=== PATIENT | male | born 1940 | race Caucasian/White ===

== ENCOUNTER 2025-08-07 08:30 | Inpatient (IN) | payer MEDICARE, SELFPAY ==
[2025-08-07] VITALS (14 sets, daily range): BP systolic 102–154; BP diastolic 54–104; PULSE 100–138; RESP 22–28; TEMP 35.8–36.4; O2SAT 78–94; BMI 11.9
--- NOTE | ~2025-08-07 | XR_ITS ---
EXAMINATION: XR CHEST CLINICAL INFORMATION: SOB COMPARISON: X-ray performed 2 days ago TECHNIQUE: Frontal view of the chest was obtained. FINDINGS: Since prior, there is increasing airspace opacity in the left lower third lung zone and persistent opacity in the right infrahilar and right lung base region. Possible interval development of small left pleural effusion. There are coarse markings throughout the lungs otherwise. Heart size is within normal limits. XR/XR chest 1V IMPRESSION: Stable changes in the right lung with increased opacity in the left lower lung zone with possible developing trace effusion concerning for worsening pneumonia. Electronically signed by: Nitin Tapia MD 08/09/2025 11:48 AM EDT
--- NOTE | ~2025-08-07 | CT_ITS ---
EXAMINATION: CT ANGIOGRAM CHEST CLINICAL INFORMATION: Shortness of breath. COMPARISON: None available. TECHNIQUE: Multiple axial images were obtained through the chest after the administration of 65 mL of Omnipaque 350 intravenous contrast. Extensive vascular post-processing including two-dimensional and three-dimensional reformatted images were created and reviewed on an independent workstation. SmartPrep technique. This CT examination was performed using dose optimization techniques as appropriate, variously including the following: *Automated exposure control *Adjustment of mA and/or kV according to patient size (this includes techniques or standardized protocols for targeted exams where dose is matched to indication/reason for exam; i.e. extremities or head) *Use of iterative reconstruction technique DLP: 421 mGy centimeter. FINDINGS: Main pulmonary artery or its main left and right branches and subsegmental pulmonary artery branches both lungs demonstrate normal patency without gross intraluminal filling defects. No gross aneurysm, thoracic aorta. Centrilobular emphysematous changes, bilaterally. Pulmonary mosaic pattern. Secretions layering within the lumen of the trachea mainstem bronchi bilaterally. Confluent attenuation, right lower lung lobe with air bronchograms. Bilateral pleural effusions, moderate volume. Mediastinal and perihilar lymphadenopathy. No pneumothorax. No pericardial effusion. No pneumomediastinum. Calcified plaque thoracic aorta wall and its main branches and the coronary arteries. Multifocal different sizes exophytic cyst, both kidneys. Calcified plaques in the abdominal aorta wall and the origin of the main mesenteric arteries and main renal arteries and splenic artery. Gallbladder is nondistended. Multilevel thoracolumbar spondylosis without gross acute fracture or listhesis. Osteopenia versus osteoporosis. Sternum is intact. No acute rib fractures. Degenerative changes in the shoulders. CT/CT angio chest PE protocol IMPRESSION: No acute pulmonary emboli. Concerning aspiration pneumonia, right lung. Mild to moderate interstitial lung edema and bilateral pleural effusions, moderate volume. Centrilobular emphysematous changes. Coronary artery disease and atherosclerosis disease. Bilateral renal cysts. Fleischner guidelines were followed. Electronically signed by: Kenney Ramirez MD 08/07/2025 11:23 AM EDT
--- NOTE | ~2025-08-07 | XR_ITS ---
EXAMINATION: XR CHEST CLINICAL INFORMATION: Rapid Response, WOB, SOB COMPARISON: Prior day. 08/07/2025. TECHNIQUE: Frontal view of the chest was obtained. FINDINGS: The cardiac silhouette is somewhat obscured. There is vascular congestion in the hilar regions. Mediastinal contours are normal. Aortic mural calcifications. Lungs demonstrate increasing alveolar and interstitial pulmonary edema bilaterally with small layering pleural effusions. There are associated bibasilar parenchymal consolidations, likely atelectasis although pneumonia is not excluded given the appearance. There appears to be diffuse peribronchial thickening as well. There is no pneumothorax. No focal osseous or soft tissue abnormality. XR/XR chest 1V IMPRESSION: Significantly worsening alveolar and interstitial pulmonary edema with small bilateral layering pleural effusions. Bibasilar parenchymal consolidations, likely alveolar edema and atelectasis, although pneumonia is not excluded in the appropriate clinical context. Electronically signed by: Inderjit Barbour MD 08/10/2025 09:53 AM EDT
--- NOTE | ~2025-08-07 | XR_ITS ---
EXAMINATION: XR CHEST CLINICAL INFORMATION: hypoxic COMPARISON: None available. TECHNIQUE: Frontal view of the chest was obtained. FINDINGS: Bilateral multifocal patchy and confluent opacities both lungs with a masslike opacity in the right perihilar region and volume loss right lung. Pulmonary reticular nodular pattern. Haziness in the right lower hemithorax. No pneumothorax. Heart silhouette size is normal. Calcified plaque aortic arch. Multilevel thoracic spondylosis. XR/XR chest 1V IMPRESSION: Acute on chronic airspace disease and concerning for malignancy, right lung. Recommend dedicated IV contrast enhanced CT chest. Electronically signed by: Kenney Ramirez MD 08/07/2025 09:06 AM EDT
--- NOTE | 2025-08-07 08:37 | ECG_ITS ---
Test Reason : SOB Blood Pressure : */* mmHG Vent. Rate : 109 BPM Atrial Rate : 109 BPM P-R Int : 176 ms QRS Dur : 100 ms QT Int : 354 ms P-R-T Axes : 72 -69 112 degrees QTcB Int : 476 ms Sinus tachycardia with frequent Premature ventricular complexes Left axis deviation Incomplete right bundle branch block ST & T wave abnormality, consider anterolateral ischemia Abnormal ECG No previous ECGs available Referred By: Kristin Martinez Electronically Signed By: ELVIS NOLEN MD
--- NOTE | 2025-08-07 08:38 | ED.SOB ---
HPI - SOB/Dyspnea General Chief Complaint: Upper Respiratory Symptoms Stated Complaint: SOB,88%,COPD/EMPHYSEMA,MIN REL FROM [facility] [place] Source: patient and EMS Mode of arrival: EMS Limitations: no limitations History of Present Illness ED Provider: Courtney Martinez PA-C HPI Narrative: 84 yo male with history of COPD not on home O2, HLD and HTN who presents to the ER from home via EMS for evaluation of SOB that started last night. Patient reports he has baseline SOB and productive cough but last night symptoms got worse. He has been bringing up more phlegm than usual for the last couple of days and he has had subjective fevers. Denies hemoptysis. His was recently sick with a cough and URI symptoms. and thinks she had the flu. He denies associated chest pains, N/V/D, abdominal pain, leg swelling. He is an active smoker and has SOB at baseline. MD elicited complaint: shortness of breath and cough Pertinent past history: COPD Onset (ago): day(s) Context: recent illness Timing: progressively worsening Severity: severe Exacerbating factors: lying flat, exertion and coughing Relieving factors: bronchodilators Known history of: COPD Associated symptoms: fever, cough, wheezing, sputum production and chest congestion Treatment prior to arrival: oxygen and bronchodilator Related Data Home oxygen amount: none Allergies Allergy/AdvReac Type Severity Reaction Status Date / Time No Known Allergies Allergy Verified 08/07/25 08:42 Review of Systems Review of Systems: Yes all other systems are reviewed and are negative [facility] Social History Social History Smoked in Last 30 Days: Yes Advance Directives: Yes Advance Directives Information Provided: Yes Advance Directives on File: No Do you have a plan to hurt others: No Plan Physical Exam Exam: Exam: Appearance: Alert elderly male sitting up in the stretcher w/ neb going, increased WOB, moderate resp distress Head: normocephalic, atraumatic. Eyes: Pupils equal, round and reactive to light. ENT: Pharynx normal. No tonsillar swelling or exudate. Neck: Normal inspection. Neck supple. CVS: tachycardic, regular rhythm, HR 110s. Pulses normal. Respiratory: moderate respiratory distress, RR 28. poor air entry posteriorly with expiratory wheezes and prolonged expiratory phase Abdomen: Soft and nontender. +BS x4 Skin: Skin warm and dry. Normal skin color. Normal skin turgor. No rashes. Extremities: No lower extremity edema. No joint swelling. Neuro/psych: Oriented X 3. No motor deficit. No sensory deficit. CN II-XII intact. speaking in short sentences, normal speech Vital Signs: Vital Signs: Last Vital Signs Temp 96.5 F L 08/07/25 10:34 Pulse 101 H 08/07/25 12:02 Resp 22 H 08/07/25 12:02 BP 109/73 08/07/25 12:02 Pulse Ox 90 L 08/07/25 12:02 O2 Del Method Nasal Cannula 08/07/25 12:02 O2 Flow Rate 3 08/07/25 12:02 FiO2 25 08/07/25 09:13 Oxygen Flow Rate 3 08/07/25 10:03 BMI result Body Mass Index 11.9 Course Reevaluation(s) Reevaluation #1: WOB improved on BiPAP 09/21, FiO2 25% Time: 08:52 Medications Administered Discontinued Medications Generic Name Dose Route Start Last Admin Trade Name Freq PRN Reason Stop Dose Admin Albuterol Sulfate 2.5 mg/ 5 mg 08/07/25 08:49 08/07/25 09:05 Albuterol Sulfate 2.5 mg INHALE 08/07/25 08:50 5 mg ONCE ONE Administration Ceftriaxone Sodium 1 gm 08/07/25 08:51 08/07/25 09:27 Ceftriaxone Sodium 1 Gm Vial IVPUSH 08/07/25 08:52 1 gm ONCE ONE Administration Azithromycin 500 mg/ Sodium 250 mls @ 125 mls/hr 08/07/25 08:51 08/07/25 09:27 Chloride IV 08/07/25 10:50 125 mls/hr ONCE ONE Administration Lactated Ringer's 1,000 mls @ 999 mls/hr 08/07/25 09:00 08/07/25 09:37 Lr IV 08/07/25 10:00 999 mls/hr .Q1H1M MARIAN Administration Iohexol 100 ml 08/07/25 11:04 08/07/25 11:06 Iohexol 350 Mg/Ml 100 Ml Infus..Btl IV 08/07/25 11:05 65 ml ONCE ONE Administration Medical Decision Making Medical Decision Making MDM Narrative: 84 yo male with history of COPD, HLD presenting to the ER from home c/o SOB and cough. Hypoxic for EMS in the 70s. Given duoneb x2 and solumedrol 125 mg IV en route. SpO2 improved to mid 90s. Arrives to the ER dyspneic, speaking in 2-3 word sentences. Increased WOB w/ accessory muscle use. Poor air movement with expiratory wheezes posteriorly Concern for COPD exacerbation, possible PNA. Patient placed on rescue BiPAP by RT. Empiric CAP coverage ordered. 951 - work of breathing improved on BiPAP. Chest x-ray with a right-sided perihilar mass. CTA ordered for further evaluation. He is an active smoker per his . VBG with respiratory acidosis. He is getting good volumes on the BiPAP, awake and alert. Will repeat VBG and trial off of BiPAP soon 1015: take off of bipap. saturating 94% on 3L NC. WOB improved. 11:45 - CTA negative for PE. no mass. right sided PNA w/ interstitial edema and bilateral pleural effusions. pro-BNP 2900. no hx CHF per his report. lactic acid 2.9 --> 3.4. s/p 1L LR. will hold off on further fluid resusciation with concern for CHF/volume overload with tenuous respiratory status. lactic acid elevation despite fluids more likely due to ongoing nebulizer treatments and less likely severe sepsis. he is afebrile, HR low 100s with stable BP. will plan for admission for further management. 12:05 - critical result for troponin up to 350 from 80s. repeat EKG without ST elevations or depression. patient denies chest pain. reports significant improvement in his breathing. likely demand. increased to 4L for SpO2 87% on 3L. cardiology TT for recs, likely related to hypoxia/demand. recommending troponin trending q6-8, routine ECHO, gentle diursis as able. hospitalist updated on recs. Differential Diagnosis Differential Diagnoses: The differential diagnosis associated with the presentation includes COPD exacerbation, PNA, viral illness, bronchitis, CHF exacerbation, pneumonitis, aspiration, lung malignancy, ACS, PE Admission/Observation Consideration of admission/observation: Escalation of care including admission/observation considered Consult Healthcare Provider Management of the patient was discussed with: Hospitalist Lab Data MDM Lab Attestation statement: I reviewed the patient's lab results. leukocytosis, no anion gap, elevated troponin and pro-BNP 08/07/25 09:26 08/07/25 09:16 Labs: Lab Results 08/07/25 08/07/25 08/07/25 Range/Units 09:16 09:23 09:26 WBC 13.6 H (4.8-10.8) X10*3/uL RBC 5.11 (4.60-5.80) X10*6/uL Hgb 15.2 (14.0-18.0) g/dl Hct 49.1 (42.0-52.0) % MCV 96.1 (80.0-98.0) fL MCH 29.7 (27.0-33.0) pg MCHC 31.0 (31.0-36.0) g/dl RDW 14.7 (11.0-16.0) % Plt Count 269 (160-400) X10*3/uL MPV 10.0 (9.4-12.4) fL Immature Gran % (Auto) 0.4 (0.0-0.4) % Neut % (Auto) 86.3 H (45-73) % Lymph % (Auto) 5.4 L (20-40) % [place] % (Auto) 7.5 (2-11) % Eos % (Auto) 0.1 (0-4) % Baso % (Auto) 0.3 (0-2) % Lymph # (Auto) 0.7 L (1.2-4.9) X10*3/uL [place] # (Auto) 1.0 (0.1-1.2) X10*3/uL Eos # (Auto) 0.0 (0.0-0.4) X10*3/uL Baso # (Auto) 0.0 (0.0-0.2) X10*3/uL Abs Immat Gran (auto) 0.06 H (0.00-0.03) X10*3/uL Absolute Neuts (auto) 11.7 H (2.0-8.3) x10*3/uL Absolute Nucleated RBC 0.000 (0.0-0.012) X10*3/uL Nucleated RBC % (auto) 0.0 (0.0-0.2) /100WBC VBG pH 7.23 L (7.32-7.43) VBG pCO2 64 mmHg VBG pO2 53 mmHg VBG HCO3 27 H (22-26) mmol/L VBG O2 Saturation 69.0 % VBG Base Excess -2.1 mmol/L Sodium 142 (135-145) mmol/L Potassium 4.1 (3.3-5.1) mmol/L Chloride 106 (96-108) mmol/L Carbon Dioxide 24 (22-29) mmol/L Anion Gap 16 (12-20) BUN 24 H (9-16) mg/dL Creatinine 1.18 (0.5-1.4) mg/dL Estim Creat Clear Calc 25.8 Estimated GFR 59 Random Glucose 208 H (60-115) mg/dL Lactic Acid 2.9 H* (0.5-2.0) mmol/L Calcium 9.4 (8.4-10.2) mg/dL Magnesium 2.2 (1.6-2.6) mg/dL Total Bilirubin 0.5 (0.0-1.0) mg/dL Direct Bilirubin 0.2 (0.0-0.5) mg/dL AST 28 (5-37) U/L ALT 15 (0-40) U/L Alkaline Phosphatase 77 (39-117) U/L Troponin I High Sens 81.9 H (<3.5-35.0) ng/L NT-Pro-B Natriuret Pep 2935.9 H (<300) pg/mL Total Protein 7.4 (6.5-8.0) g/dL Albumin 4.2 (3.5-5.0) g/dL COVID-19 (ALFONSO) Negative (Negative) COVID-19 Clin Com See Note Influenza Type A (SUZE) Negative (Negative) Influenza Type B (SUZE) Negative (Negative) Influenza A & B Note See Note 08/07/25 08/07/25 Range/Units 11:18 11:24 WBC (4.8-10.8) X10*3/uL RBC (4.60-5.80) X10*6/uL Hgb (14.0-18.0) g/dl Hct (42.0-52.0) % MCV (80.0-98.0) fL MCH (27.0-33.0) pg MCHC (31.0-36.0) g/dl RDW (11.0-16.0) % Plt Count (160-400) X10*3/uL MPV (9.4-12.4) fL Immature Gran % (Auto) (0.0-0.4) % Neut % (Auto) (45-73) % Lymph % (Auto) (20-40) % [place] % (Auto) (2-11) % Eos % (Auto) (0-4) % Baso % (Auto) (0-2) % Lymph # (Auto) (1.2-4.9) X10*3/uL Murray # (Auto) (0.1-1.2) X10*3/uL Eos # (Auto) (0.0-0.4) X10*3/uL Baso # (Auto) (0.0-0.2) X10*3/uL Abs Immat Gran (auto) (0.00-0.03) X10*3/uL Absolute Neuts (auto) (2.0-8.3) x10*3/uL Absolute Nucleated RBC (0.0-0.012) X10*3/uL Nucleated RBC % (auto) (0.0-0.2) /100WBC VBG pH 7.29 L (7.32-7.43) VBG pCO2 59 mmHg VBG pO2 47 mmHg VBG HCO3 28 H (22-26) mmol/L VBG O2 Saturation 67.0 % VBG Base Excess 0.8 mmol/L Sodium (135-145) mmol/L Potassium (3.3-5.1) mmol/L Chloride (96-108) mmol/L Carbon Dioxide (22-29) mmol/L Anion Gap (12-20) BUN (9-16) mg/dL Creatinine (0.5-1.4) mg/dL Estim Creat Clear Calc Estimated GFR Random Glucose (60-115) mg/dL Lactic Acid 3.4 H* (0.5-2.0) mmol/L Calcium (8.4-10.2) mg/dL Magnesium (1.6-2.6) mg/dL Total Bilirubin (0.0-1.0) mg/dL Direct Bilirubin (0.0-0.5) mg/dL AST (5-37) U/L ALT (0-40) U/L Alkaline Phosphatase (39-117) U/L Troponin I High Sens 356.3 H* D (<3.5-35.0) ng/L NT-Pro-B Natriuret Pep (<300) pg/mL Total Protein (6.5-8.0) g/dL Albumin (3.5-5.0) g/dL COVID-19 (ALFONSO) (Negative) COVID-19 Clin Com Influenza Type A (SUZE) (Negative) Influenza Type B (SUZE) (Negative) Influenza A & B Note ABG Data Attestation ABG: I personally reviewed and interpreted this ABG as follows: Interpretation: acute respiratory acidosis Independent Interpretation I performed an independent interpretation of an: EKG, Plain X-Ray and CT Scan Interpretation: cxr w/ right perihilar opacity, RLL opacity vs atelectasis, chronic interstitial findings EKG #1 with sinus tachycardia, frequent PVC, vent rate 109 bpm, ST depressions in V3-V4. no prior for comparison CTA without PE, right sided infiltrate w/ effusions EKG #2 sinus rhythm w/ sinus arrythmia, HR 93 bpm, no longer having PVCs, poor R wave progression. no ST segment elevations or depressions Radiology Impression Discussion of test interpretation with radiology: I have reviewed the radiologist's reading. Radiologist Impression: CT/CT angio chest PE protocol IMPRESSION: No acute pulmonary emboli. Concerning aspiration pneumonia, right lung. Mild to moderate interstitial lung edema and bilateral pleural effusions, moderate volume. Centrilobular emphysematous changes. Coronary artery disease and atherosclerosis disease. Bilateral renal cysts. Independent Historian Clinical information obtained from an independent historian. History obtained from or confirmed by: Spouse and EMS Prescription Management I considered prescription management with: Antibiotic Chronic Conditions Patient?s care impacted by: Hypertension Critical Care Time Critical Care Time Critical Care Time: Yes Total Critical Care Time: 45 Attestation: I have personally provided critical care time exclusive of time spent on separately billable procedures. Time includes review of lab data, radiology results, discussion with consultants, and monitoring for potential decompensation. Intervention performed as documented. Discharge Plan Discharge Clinical Impression: COPD exacerbation, Acute respiratory failure with hypoxia and hypercarbia, Non-ST elevation MS (NSTEMI) Pneumonia Qualifiers: Pneumonia type: due to unspecified organism Laterality: right Lung location: lower lobe of lung Qualified Code(s): J18.9 - Pneumonia, unspecified organism Patient Disposition: Admitted As Inpatient Print Language: Luxembourger
[2025-08-07] MEDS: Albuterol Sulfate 2.5 MG, Albuterol Sulfate (0.083%) 2.5 MG 5 MG INHALE (09:05)
[2025-08-07 09:32] LABS: Venous Blood Gas Refer to POC result
[2025-08-07 09:33] LABS: MANUAL DIFF FLAG NO
[2025-08-07 09:34] LABS: VBG HCO3 27 mmol/L (22-26); VBG O2 % Saturation 69.0 %
[2025-08-07 09:34] LABS: Hematocrit 49.1 % (42.0-52.0); Hemoglobin 15.2 g/dl (14.0-18.0); Imm Gran Abs Auto 0.06 X10*3/uL (0.00-0.03); Imm Gran Pct Auto 0.4 % (0.0-0.4); Lymphocytes Absolute Auto 0.7 X10*3/uL (1.2-4.9); Mean Corpuscular HGB Conc 31.0 g/dl (31.0-36.0); Mean Corpuscular Hemoglobin 29.7 pg (27.0-33.0); Mean Corpuscular Volume 96.1 fL (80.0-98.0); NRBC Abs Auto 0.000 X10*3/uL (0.0-0.012); NRBC Pct Auto 0.0 /100WBC (0.0-0.2); Platelet Count 269 X10*3/uL (160-400); Red Blood Count 5.11 X10*6/uL (4.60-5.80); White Blood Count 13.6 X10*3/uL (4.8-10.8)
[2025-08-07] MEDS: Lactated Ringers 1,000 ML 999 ML IV (09:37)
[2025-08-07 09:45] LABS: COVID-19 Test Negative (Negative); IDNOW Serial# 55D5AD1C; IDNOW Serial# 58CA691E; Influenza B2 Negative (Negative)
[2025-08-07 10:13] LABS: Alanine Aminotransferase 15 U/L (0-40); Albumin Level 4.2 g/dL (3.5-5.0); Alkaline Phosphatase 77 U/L (39-117); Anion Gap 16 (12-20); Aspartate Amino Transferase 28 U/L (5-37); Blood Urea Nitrogen 24 mg/dL (9-16); Calcium 9.4 mg/dL (8.4-10.2); Carbon Dioxide 24 mmol/L (22-29); Chloride 106 mmol/L (96-108); Creatinine Clr Calc Pharmacy 25.8; Estimated Glomerular Filt Rate 59; Magnesium 2.2 mg/dL (1.6-2.6); Potassium 4.1 mmol/L (3.3-5.1); Sodium 142 mmol/L (135-145); Total Protein 7.4 g/dL (6.5-8.0)
[2025-08-07 10:43] LABS: Troponin-I High Sensitivity 81.9 ng/L (<3.5-35.0)
[2025-08-07 10:45] LABS: NT Pro B Type Natriuretic Pept 2935.9 pg/mL (<300)
[2025-08-07] MEDS: iohexoL 350 MG/ML 100 ML INFUS..BTL IV (11:06)
[2025-08-07 11:28] LABS: Venous Blood Gas Refer to POC result
[2025-08-07 11:28] LABS: VBG HCO3 28 mmol/L (22-26); VBG O2 % Saturation 67.0 %
[2025-08-07 11:32] LABS: Reflex Lactate? Lactic Acid Added
--- NOTE | 2025-08-07 12:00 | PM.IMHP ---
History of Present Illness Date of Service: 08/07/25 Chief Complaint: AHRF2/2 asp pneumonia, s/p rescue Bipap enroute Patient is a 84 yo male with history of COPD not on home O2, HLD , recurrent aspiration pneumonia, difficulty swallowing to both solids and liquids for the past few weeks who reports acute on chronic worsening of respiratory failure and was noted to have severe hypoxia down to the 70s necessitating a ride to the ED via ambulance. He was noted to have expiratory wheezes and hypoxia to the low 70s, Increased WOB w/ accessory muscle use. Poor air movement with expiratory wheezes posteriorly, unable to complete full sentences.-EMT had given him Solu-Medrol and placed him on BiPAP with improvement to the low 90s upon arrival to the ED. Patient reports that his was sick 2 weeks ago-was noted to have bronchitis, however she reports that she tried her best to isolate herself from the patient who has been sick. Imaging revealed bilateral pneumonia, with lactic acidemia worsening, fluids limited secondary to pulmonary edema, up trending troponinemia. When I saw the patient in the ED, he had increased work of breathing, appeared quite frail, tachypneic and tachycardic and met sepsis criteria-source being pneumonia. Patient was initiated on vanc and Ceftriaxone for sepsis workup, gentle fluid hydration given risks versus benefits for pulmonary edema\ Patient is being admitted for further medical management necessitating IV antibiotics, in a patient with high-risk of aspiration pneumonia. who is the healthcare proxy was at the bedside and he endorsed being full code. Review of Systems Review of Systems: Yes all other systems are reviewed and are negative PMFSH Social History Smoked in Last 30 Days: Yes Advance Directives: Yes Advance Directives Information Provided: Yes Advance Directives on File: No Do you have a plan to hurt others: No Plan Meds Allergies Allergy/AdvReac Type Severity Reaction Status Date / Time No Known Allergies Allergy Verified 08/07/25 08:42 Home Medications ?Medication ?Instructions ?Recorded ?Confirmed ?Last Taken ?Type albuterol sulfate 90 mcg/actuation 1 puff inhalation QID PRN wheezing 08/07/25 08/07/25 Unknown History aerosol inhaler ascorbic acid (vitamin C) 500 mg 500 mg PO DAILY 08/07/25 08/07/25 08/06/25 History tablet (Vitamin C) azelastine 137 mcg (0.1 %) nasal 1 spray intranasal BID PRN 08/07/25 08/07/25 Unknown History spray congestion cholecalciferol (vitamin D3) 25 25 mcg PO DAILY 08/07/25 08/07/25 08/06/25 History mcg (1,000 unit) tablet (Vitamin D3) losartan 25 mg tablet 25 mg PO DAILY 08/07/25 08/07/25 08/06/25 History multivitamin 1 tab PO DAILY 08/07/25 08/07/25 08/06/25 History omega 8-fuq-bnl-fish oil 60 mg-90 1 cap PO DAILY 08/07/25 08/07/25 08/06/25 History mg-500 mg capsule (Fish Oil) simvastatin 40 mg tablet 40 mg PO DAILY 08/07/25 08/07/25 08/06/25 History umeclidinium 62.5 mcg-vilanterol 1 ea inhalation DAILY 08/07/25 08/07/25 08/06/25 History 25 mcg/actuation powdr for inhalation (Anoro Ellipta) Physical Exam Vital Signs and Narrative: Vital Signs: Last Vital Signs Temp 96.5 F L 08/07/25 10:34 Pulse 105 H 08/07/25 10:34 Resp 22 H 08/07/25 10:34 BP 104/61 08/07/25 10:34 Pulse Ox 92 08/07/25 10:34 O2 Del Method Nasal Cannula 08/07/25 10:34 O2 Flow Rate 3 08/07/25 10:34 FiO2 25 08/07/25 09:13 Oxygen Flow Rate 3 08/07/25 10:03 BMI result Body Mass Index 11.9 General: AOx3, appears like he has mild baseline cognitive dysfunction, not officially diagnosed, Resp: increased work of breathing, expiratory wheezes noted bilaterally CVS: Sinus tachycardia GI: Distended abdomen, mild abdominal breathing Skin: Warm, dry Neuro: Motor grossly intact bilaterally Results Labs 08/07/25 09:26 08/07/25 09:16 Labs: Laboratory Results - last 24 hr 08/07/25 08/07/25 08/07/25 09:16 09:23 09:26 MCV 96.1 MCH 29.7 MCHC 31.0 RDW 14.7 Plt Count 269 MPV 10.0 Immature Gran % (Auto) 0.4 Neut % (Auto) 86.3 H Lymph % (Auto) 5.4 L [place] % (Auto) 7.5 Eos % (Auto) 0.1 Baso % (Auto) 0.3 Lymph # (Auto) 0.7 L [place] # (Auto) 1.0 Eos # (Auto) 0.0 Baso # (Auto) 0.0 Abs Immat Gran (auto) 0.06 H Absolute Neuts (auto) 11.7 H Absolute Nucleated RBC 0.000 Nucleated RBC % (auto) 0.0 VBG pH 7.23 L VBG pCO2 64 VBG pO2 53 VBG HCO3 27 H VBG O2 Saturation 69.0 VBG Base Excess -2.1 Anion Gap 16 Estim Creat Clear Calc 25.8 Estimated GFR 59 Random Glucose 208 H Lactic Acid 2.9 H* Calcium 9.4 Magnesium 2.2 Total Bilirubin 0.5 Direct Bilirubin 0.2 AST 28 ALT 15 Alkaline Phosphatase 77 Troponin I High Sens 81.9 H NT-Pro-B Natriuret Pep 2935.9 H Total Protein 7.4 Albumin 4.2 COVID-19 (ALFONSO) Negative COVID-19 Clin Com See Note Influenza Type A (SUZE) Negative Influenza Type B (SUZE) Negative Influenza A & B Note See Note 08/07/25 08/07/25 11:18 11:24 MCV MCH MCHC RDW Plt Count MPV Immature Gran % (Auto) Neut % (Auto) Lymph % (Auto) [place] % (Auto) Eos % (Auto) Baso % (Auto) Lymph # (Auto) [place] # (Auto) Eos # (Auto) Baso # (Auto) Abs Immat Gran (auto) Absolute Neuts (auto) Absolute Nucleated RBC Nucleated RBC % (auto) VBG pH 7.29 L VBG pCO2 59 VBG pO2 47 VBG HCO3 28 H VBG O2 Saturation 67.0 VBG Base Excess 0.8 Anion Gap Estim Creat Clear Calc Estimated GFR Random Glucose Lactic Acid 3.4 H* Calcium Magnesium Total Bilirubin Direct Bilirubin AST ALT Alkaline Phosphatase Troponin I High Sens NT-Pro-B Natriuret Pep Total Protein Albumin COVID-19 (ALFONSO) COVID-19 Clin Com Influenza Type A (SUZE) Influenza Type B (SUZE) Influenza A & B Note Imaging Radiologist's Impressions: Impressions Chest X-Ray 08/07/25 08:50 IMPRESSION: Acute on chronic airspace disease and concerning for malignancy, right lung. Recommend dedicated IV contrast enhanced CT chest. Electronically signed by: Kenney Ramirez MD 08/07/2025 09:06 AM EDT RP Chest CTA 08/07/25 10:56 IMPRESSION: No acute pulmonary emboli. Concerning aspiration pneumonia, right lung. Mild to moderate interstitial lung edema and bilateral pleural effusions, moderate volume. Centrilobular emphysematous changes. Coronary artery disease and atherosclerosis disease. Bilateral renal cysts. Fleischner guidelines were followed. Electronically signed by: Kenney Ramirez MD 08/07/2025 11:23 AM EDT RP Assessment and Plan (1) Acute respiratory failure with hypoxia and hypercarbia: Status: Acute (2) Pneumonia: Qualifiers: Laterality: right Lung location: lower lobe of lung Pneumonia type: due to unspecified organism Qualified Code(s): J18.9 - Pneumonia, unspecified organism Status: Acute Plan Patient is a 84 yo male with history of COPD not on home O2, HLD , recurrent aspiration pneumonia, difficulty swallowing to both solids and liquids for the past few weeks who reports acute on chronic worsening of respiratory failure necessitating BiPAP, IV steroids. Patient met severe sepsis criteria secondary to bilateral pneumonia #Acute hypoxic respiratory failure in the setting of pneumonia Patient is being treated with IV antibiotics-ceftriaxone vancomycin Follow-up sepsis workup and deescalate accordingly Scheduled and p.r.n. nebulizer treatment Continue IV steroids Given that the patient is likely aspirating/high-risk of aspiration BiPAP is contraindicated in this patient We will likely need home O2 eval prior to discharge Lactic acidosis up trending-hence given risks versus benefits we would like to give him more fluid (while the patient is also being given Lasix for adequate diuresis to prevent worsening of pulmonary edema) #A/C stated Aspiration pneumonia Patient does not have an official diagnosis of dysphagia Four who is the primary caregiver, it is likely that the patient has underlying dysphagia hence placed him on NPO until swallow eval completed All medications changed to IV accordingly Given his NPO status, he is being repleted with fluids D5 NS #AE HFpEF TTE Lasix 40 IV b.i.d. # Troponinemia-likely demand ischemia TTE Trend troponin q.4 hours until peaked EKG without any acute changes Consider cardiology consult for any acute CAD changes #Frailty in elderly PTOT We will likely benefit from a short-term rehab DVT prophylaxis with Lovenox Code status full confirmed with the patient and the at the bedside This note is constructed using voice recognition software. While every effort has been made to ensure accuracy, hull grinder errors may have been included. Admission is warranted for this patient with sepsis secondary to severe pneumonia due to evidence of systemic infection, hemodynamic instability, and the need for close monitoring and aggressive management. The patient requires intravenous antibiotics, fluid resuscitation, and frequent assessment of vital signs and organ function. Inpatient care is essential to promptly address potential complications such as respiratory failure, septic shock, and multi-organ dysfunction, and to provide advanced supportive therapies as needed. Quality Stroke Does the patient have a stroke diagnosis?: No VTE Prior VTE?: No VTE Risk Level:: Medical - moderate - high VTE Device Contraindication: N/A - Device Ordered VTE Drug Contraindication: N/A - Med Ordered
[2025-08-07 12:02] LABS: Troponin-I High Sensitivity 356.3 ng/L (<3.5-35.0)
--- NOTE | 2025-08-07 12:02 | ECG_ITS ---
Test Reason : SOB Blood Pressure : */* mmHG Vent. Rate : 93 BPM Atrial Rate : 101 BPM P-R Int : * ms QRS Dur : 108 ms QT Int : 400 ms P-R-T Axes : 57 -65 99 degrees QTcB Int : 497 ms Undetermined rhythm Left axis deviation Incomplete right bundle branch block Nonspecific T wave abnormality Prolonged QT Abnormal ECG When compared with ECG of 07-Aug-2025 08:52, Current undetermined rhythm precludes rhythm comparison, needs review ST no longer depressed in Anterior leads T wave inversion no longer evident in Anterior leads Referred By: Kristin Martinez Electronically Signed By: ELVIS NOLEN MD
[2025-08-07] MEDS: Hydrocortisone Sod Succ/PF 100 MG VIAL IVPUSH (12:33)
--- NOTE | 2025-08-07 13:04 | PHA.PROG ---
Admission Date/Time: August 07, 2025 12:03 Indication: Sepsis Weight in k.916 kg Adjusted body weight in Kg: [place] body weight in Kg: Obesity Dosing Indication % IBW: Serum Creatinine - Last 168 Hours 08/07/25 09:16 Creatinine 1.18 Estimated CrCl and GFR - Last 168 Hours 08/07/25 09:16 Estim Creat Clear Calc 25.8 Estimated GFR 59 Vancomycin Loading Dose: 1000mg Current Vancomycin Dosing Regimen: 750mg Q24H Vancomycin Monitoring using AUC goal of 400 - 600 range with trough as surrogate marker: 563 mg/L*hr Date and Time for next Vancomycin Level to be drawn: 08/08/25 @1100 Pharmacist Comments on Vancomycin Plan: Vancomycin dosing will take advantage of Exploretrip as a clinical decision support tool that uses Bayesian modeling to calculate individual patient's pharmacokinetic parameters and forecast the patient's drug concentration time course with the target goal AUC 24 range of 400 - 600 mg/L/hr.
[2025-08-07 13:22] LABS: Reflex Lactate? Lactic Acid Added
[2025-08-07 13:34] LABS: Procalcitonin 0.07 ng/mL
--- NOTE | 2025-08-07 14:02 | PHA.MEDREC ---
Addendum entered by Mary Live RPh 08/07/25 14:31: MED REC REVIEWED BY [facility] Original Note: Pharmacy Consult ? Medication Reconciliation Pharmacy has completed the medication reconciliation. Spoke to patient and at bedside. patient was able to confirm all of his medications. Patient last had his medications yesterday
[2025-08-07 14:04] LABS: ~Lactic Acid-LAB USE ONLY 3.3 mmol/L (0.5-2.0)
[2025-08-07 15:38] LABS: Appearance Urine Clear; Glucose Urine UA Negative (Negative); PH 5.5 (5.0-9.0); Specific Gravity - Urine >= 1.030 (1.005-1.025); UMIC TRIGGER UACC YES
[2025-08-07 15:40] LABS: Reflex Lactate? 2 Y
[2025-08-07 16:48] LABS: MRSA Nasal PCR NEGATIVE (Negative); SA Nasal PCR NEGATIVE (Negative)
[2025-08-07 17:03] LABS: ~Lactic Acid-LAB USE ONLY 3.4 mmol/L (0.5-2.0)
[2025-08-07] MEDS: 0.9 % Sodium Chloride Flush 3 ML SYRINGE IVFLUSH (17:11)
[2025-08-07 17:48] LABS: Venous Blood Gas Refer to POC result
[2025-08-07 17:49] LABS: VBG HCO3 24 mmol/L (22-26); VBG O2 % Saturation 89.0 %
[2025-08-07 18:23] LABS: Troponin-I High Sensitivity 3400.8 ng/L (<3.5-35.0)
--- NOTE | 2025-08-07 18:28 | PM.EVENT ---
Event Note Date of Service: 08/07/25 Event Note: Patient's troponin went up to 3400,getting a new EKG And hence I am initiating him on heparin drip for possible NSTEMI Patient is asymptomatic, however he likely needs cardiac intervention Cardiology consulted Time Spent With Patient Time: Total time managing care of this patient today ____ minutes.
--- NOTE | 2025-08-07 18:45 | ECG_ITS ---
Test Reason : NSTEMI Blood Pressure : */* mmHG Vent. Rate : 106 BPM Atrial Rate : 122 BPM P-R Int : 192 ms QRS Dur : 98 ms QT Int : 322 ms P-R-T Axes : * -64 149 degrees QTcB Int : 427 ms Sinus tachycardia with Atrial tachycardia Left axis deviation Incomplete right bundle branch block Nonspecific ST and T wave abnormality Abnormal ECG When compared to the previous EKG of Atrial tachycardia is now Present Nonspecific T wave abnormality now evident in Inferior leads Nonspecific T wave abnormality, worse in Anterior leads Referred By: Maile Zhang Electronically Signed By: ELVIS NOLEN MD
[2025-08-07 18:52] LABS: INTERNATIONAL NORM RATIO 1.1 (0.9-1.1); Prothrombin Time 12.9 SEC (10.9-12.4)
--- NOTE | 2025-08-07 21:00 | PC.NURSE ---
pt noted to have NPO order placed, orders for PO atorvastain, this RN made hospitalist Anaid Arvizu aware of pt being NPO w/ PO medications orders at this time, requesting updated orders, message acknowleged
[2025-08-07 22:12] LABS: Troponin-I High Sensitivity 6154.5 ng/L (<3.5-35.0)
--- NOTE | 2025-08-07 22:31 | PC.NURSE ---
at this time this RN messaged provider Anaid Arvizu in regard to pt PO medication d/t pt being NPO requesting if medication should be held, pending acknowledgment
[2025-08-07 23:07] LABS: Glucose, Whole Blood 167 mg/dL (60-115)
--- NOTE | 2025-08-07 23:07 | PC.NURSE ---
pt IV pump continuously stated downstream occlusion, D5NS switched to 20g to the right forearm, running appropriately, approximately 500mL remaining in infusion bag at this time
[2025-08-08] VITALS (13 sets, daily range): BP systolic 98–119; BP diastolic 55–71; PULSE 90–115; RESP 17–22; TEMP 36.7–37.6; O2SAT 90–97
--- NOTE | 2025-08-08 | ECG_ITS ---
Test Reason : NSTEMI Blood Pressure : */* mmHG Vent. Rate : 63 BPM Atrial Rate : 63 BPM P-R Int : 222 ms QRS Dur : 108 ms QT Int : 438 ms P-R-T Axes : 57 -38 182 degrees QTcB Int : 448 ms Sinus rhythm with 1st degree A-V block Left axis deviation Incomplete right bundle branch block Anteroseptal infarct , age undetermined ST & T wave abnormality, consider inferolateral ischemia Abnormal ECG When compared with ECG of 08-Aug-2025 01:04, Anteroseptal infarct is now Present Referred By: Maile Zhang Electronically Signed By: ELVIS NOLEN MD
--- NOTE | 2025-08-08 01:09 | PC.NURSE ---
approximately 300mL remaining of pt D5NS @100mL/hr, no downstream occlusions since switching IVF to R.FA IV line
[2025-08-08 02:19] LABS: Troponin-I High Sensitivity 7177.4 ng/L (<3.5-35.0)
--- NOTE | 2025-08-08 03:33 | PC.NURSE ---
second bag of D5NS hung at this time
[2025-08-08 05:23] LABS: Creatinine Clr Calc Pharmacy 31.4; Estimated Glomerular Filt Rate > 60
[2025-08-08 05:33] LABS: Troponin-I High Sensitivity 6431.2 ng/L (<3.5-35.0)
--- NOTE | 2025-08-08 07:00 | CA_ITS ---
Transthoracic Echocardiogram Patient (Last, First, Middle): Mango Wilkerson, Gender: M Date of : 1940 Age: 84 Procedure Date: 08/08/2025 Procedure Type: Transthoracic Echocardiogram Location: ER Height: 182.88 cm Weight: 85.28 kg BSA: 2.08 m2 Heart Rate: 107 bpm BP: 112 / 69 mmHg Chain Builder: DUTCH Referring MD: Maile Zhang MD Staff Midwife/Apprenticeship Director: Good Macedo MD Symptoms: nstemi Study Quality: Fair ECG Rhythm: Atach with NSR Conclusions: - 1. Moderately reduced LV ejection fraction of 35-40% with wall motion abnormality in RCA/ circumflex distribution 2. Cardiac valvular Dopplers within normal limits 3. Upper limits of normal RV systolic pressure with mildly elevated right atrial pressures 4. Upper limits of normal ascending aortic size 5. No gross pericardial effusion Findings Procedure Information Contrast agent, definity, is being given per protocol without apparent complications. The quality of the study was technically difficult. The study quality is limited by lung artifact. Left Ventricle The left ventricle was not well visualized. Normal left ventricular cavity size. There is normal left ventricular wall thickness. The left ventricular systolic function is moderately decreased. The visually estimated ejection fraction is between 35-40%. Diastolic function is indeterminate on the basis of available data. There is mild septal asymmetric hypertrophy. Wall Motion Rest Echo Findings The inferolateral wall, the basal inferior, mid inferior, and basal inferoseptal segments are hypokinetic. All other scored wall segments showed normal motion. Right Ventricle The right ventricle was not well visualized. Atria The left atrium was not well visualized. Interatrial shunt cannot be excluded. The right atrium was not well visualized. Aortic Valve The aortic valve was not well visualized. There is no aortic valve stenosis. There is no aortic valve regurgitation. Mitral Valve There is mild anterior and posterior mitral leaflet thickening. There is trace mitral valve regurgitation. There is no mitral valve stenosis. Pulmonic Valve The pulmonic valve was not well visualized. Tricuspid Valve Likely normal tricuspid valve structure and function. There is mild tricuspid valve regurgitation. Mildly elevated right atrial pressure. There is no evidence of pulmonary hypertension. Great Vessels The pulmonary artery was not well visualized. There is no dilatation of the ascending aorta measuring 3.50 cm. Venous The inferior vena cava is moderately dilated and collapses less than 50% with inspiration. Pericardium/Pleural There is no evidence of pericardial effusion. Prior Study Comparison No prior study available for comparison. Measurements 2D Linear Measurements IVSd: 1.33 0.6-0.9/0.6-1.0 cm LVIDd: 5.66 3.9-5.3/4.2-5.9 cm LVIDd Index: 2.72 2.4-3.2/2.2-3.1 cm/m2 LVIDs: 4.48 2.0-3.6 cm LVPWd: 0.89 0.7-1.1 cm LA Diam: 4.40 2.7-3.8/3.0-4.0 cm LAIDs Index: 2.12 1.5-2.3 cm/m2 LV Mass: 319.91 67-162/88-224 g LV Mass Index: 153.80 43-95/49-115 g/m2 LVOT Diam: 2.40 3.0+(-)1.3 cm 2D Systolic Function EF 4C: 37.70 >55% EF 2C: 30.20 >55% EF BiP: 35.80 >55% Mitral Valve MV Pk E: 1.03 Aortic Valve AoV Pk Jovan: 0.94 AoV Mn Jovan: 0.68 AoV VTI: 0.17 AoV Pk Grad: 4.00 Aov Mn Grad: 2.00 MAURY Cont.VTI: 4.12 LVOT LVOT Pk Jovan: 0.76 LVOT Mn Jovan: 0.65 LVOT VTI: 0.16 LVOT Pk Grad: 2.00 LVOT Mn Grad: 2.00 LVOT Diam: 2.40 LVOT Area: 4.52 Diastolic Function MV Pk E: 1.03 Right Ventricle TAPSE (mm): 10.60 TVS' Jovan: 7.72 Tricuspid Valve TR Pk Jovan: 2.79 TR Pk Grad: 31.00 RA Press: 8.00 RVSP: 39.00 Great Vessels Aorta Sinus of Valsalva: 3.30 2.0-3.5 cm Ao Asc: 3.50 2.1-3.4 cm Pulmonary Valve PV Pk Jovan: 0.80 Peak PV Grad: 3.00 Updated in Other Vendor System with Status of Final Good Macedo MD electronically signed on 08/08/2025 12:31:22 PM with status of Final
--- NOTE | 2025-08-08 08:24 | PM.CNCAR ---
History of Present Illness History of Present Illness Date of Service: 08/08/25 Requesting physician: Malie Zhang Consult reason: myocardial infarction Chief complaint: AHRF 2/ asp pna Narrative: I was consulted to see Mango in cardiology consultation today for elevated cardiac markers. Patient is 84-year-old male with prior history of COPD follows with a rack carrier and [facility] treated with inhalers. He is doing well overall and is pretty independent in his day-to-day life and for the last month or so he said he was having we had symptoms of diaphoresis every 12 hours that day. No fever or chills reported. With the last few days he started getting progressively more short of breath with wheezing and cough although not productive phlegm. He therefore decided come to the emergency room. When he came to the Emergency was noted to be in acute hypoxemic respiratory failure related to COPD exacerbation. His troponins were drawn at that time which were elevated with EKG changes suggestive of ischemic changes in the anterolateral leads. Subsequent troponins were further elevated and they peaked at 7100. During the entire process he did not have any significant symptoms of chest discomfort including at home including with exertion. He denies any symptoms of palpitations. He has remained hemodynamically stable. His troponin this morning have downtrending. He has been started on IV heparin drip. Noted on the monitor that he is having short bursts of atrial tachycardia up to 115 beats per minute and then converts to sinus rhythm. He denies any symptoms of palpitation. He said he had a myocardial infarction about 45 years ago no interventions performed. He has been doing well otherwise. He had a stress test about 10 years ago, do not have a copy of that result. He has not had any recent exertional chest. No orthopnea, PND, leg edema. Chest CT was done which suggested bilateral pleural effusion with some pulmonary edema. EKGs shows progressive Q-waves in anteroseptal leads as well as in lead 3. 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 Review of Systems Constitutional: Constitutional: Denies body ache(s), Denies chills, Reports fatigue, Denies fever(s) and Reports other (Diaphoresis) Eyes: Eyes: Reports no additional eye complaints Cardiovascular: Cardiovascular: Denies chest pain, Reports dyspnea and Reports dyspnea on exertion Respiratory: Respiratory: Reports cough, Reports dyspnea, Reports dyspnea on exertion and Reports wheezing Gastrointestinal: Gastrointestinal: Reports no additional gastrointestinal complaints Genitourinary: Genitourinary: Reports no additional male genitourinary complaints Musculoskeletal: Musculoskeletal: Reports no additional musculoskeletal complaints Integumentary/Breasts: Skin/Breast: Reports system reviewed and no additional complaints, except as docu Neurologic: Reports system reviewed and no additional complaints, except as documented Psychiatric: Psychiatric: Reports no additional psychiatric complaints Endocrine: Endocrine: Reports no additional endocrine complaints and Reports fatigue Allergic/Immunologic: Allergic/Immunologic: Reports wheezing [facility] Social History Social History Patient Tobacco Use Status: Never used Tobacco Smoked in Last 30 Days: Yes Advance Directives: Yes Advance Directives Information Provided: Yes Advance Directives on File: No Do you have a plan to hurt others: No Plan Nutrition Risks: Difficulty swallowing and On aspiration precautions Meds Allergies Allergy/AdvReac Type Severity Reaction Status Date / Time No Known Allergies Allergy Verified 08/07/25 08:42 Active Medications: Current Medications Acetaminophen (Acetaminophen 325 Mg Tablet) 650 mg PO Q6H PRN PRN Reason: Pain, Mild 1-3,fever,headache Al Hydroxide/Mg Hydroxide (Magnesium Hydrox/Alum Hydrox 30 Ml Oral.Susp) 30 ml PO Q4H PRN PRN Reason: Heartburn Albuterol Sulfate (Albuterol Sulfate 90 Mcg 8 Gm Inhaler) 1 puff INHALE QID PRN PRN Reason: Wheezing Albuterol/Ipratropium (Albuterol/Iprat 2.5/0.5mg 3 Ml Ampul.Neb) 3 ml INHALE Q4H PRN PRN Reason: Shortness of Breath/Wheezing Atorvastatin Calcium (Atorvastatin Calcium 80 Mg Tablet) 80 mg PO DAILY [facility] Last Admin: 08/07/25 22:30 Dose: Not Given Benzonatate (Benzonatate 100 Mg Capsule) 100 mg PO TID PRN PRN Reason: Cough Calcium Carbonate (Calcium Carbonate 750 Mg Tab.Chew) 750 mg PO Q4H PRN PRN Reason: Heartburn Docusate Sodium (Docusate Sodium 100 Mg Capsule) 100 mg PO BID [facility] Last Admin: 08/07/25 22:30 Dose: Not Given Azithromycin 500 mg/ Sodium (Chloride) 250 mls @ 125 mls/hr IV Q24H [facility] Stop: 08/12/25 08:59 Dextrose/Sodium Chloride (D5ns) 1,000 mls @ 100 mls/hr IVCONT .Q10H MARIAN Piperacillin Sod/Tazobactam (Sod 2.25 gm/ Sodium Chloride) 50 mls @ 100 mls/hr IV Q6H [facility] Magnesium Hydroxide (Milk Of Magnesia 30 Ml Oral.Susp) 30 ml PO DAILY PRN PRN Reason: Constipation Melatonin (Melatonin 3 Mg Tablet) 6 mg PO BEDTIME PRN PRN Reason: Insomnia Methylprednisolone Sodium Succinate (Methylprednisolone Sod Succ 125 Mg/2 Ml Vial) 60 mg IVPUSH Q8H [facility] Last Admin: 08/08/25 02:24 Dose: 60 mg Ondansetron HCl (Ondansetron Hcl 4 Mg/2 Ml Vial) 4 mg IVPUSH Q8H PRN PRN Reason: Nausea and Vomiting Polyethylene Glycol (Polyethylene Glycol 3350 17 Gm Powd.Pack) 17 gm PO DAILY PRN PRN Reason: Constipation Senna (Sennosides 8.6 Mg Tablet) 17.2 mg PO BEDTIME [facility] Last Admin: 08/07/25 22:30 Dose: Not Given Sodium Chloride (0.9 % Sodium Chloride Flush 3 Ml Syringe) 3 ml IVFLUSH QSHIFT [facility] Last Admin: 08/08/25 07:09 Dose: Not Given Home Medications ?Medication ?Instructions ?Recorded ?Confirmed ?Last Taken ?Type albuterol sulfate 90 mcg/actuation 1 puff inhalation QID PRN wheezing 08/07/25 08/07/25 Unknown History aerosol inhaler ascorbic acid (vitamin C) 500 mg 500 mg PO DAILY 08/07/25 08/07/25 08/06/25 History tablet (Vitamin C) azelastine 137 mcg (0.1 %) nasal 1 spray intranasal BID PRN 08/07/25 08/07/25 Unknown History spray congestion cholecalciferol (vitamin D3) 25 25 mcg PO DAILY 08/07/25 08/07/25 08/06/25 History mcg (1,000 unit) tablet (Vitamin D3) losartan 25 mg tablet 25 mg PO DAILY 08/07/25 08/07/25 08/06/25 History multivitamin 1 tab PO DAILY 08/07/25 08/07/25 08/06/25 History omega 2-kpp-lbb-fish oil 60 mg-90 1 cap PO DAILY 08/07/25 08/07/2525 History mg-500 mg capsule (Fish Oil) simvastatin 40 mg tablet 40 mg PO DAILY 08/07/25 08/07/25 08/06/25 History umeclidinium 62.5 mcg-vilanterol 1 ea inhalation DAILY 08/07/25 08/07/25 08/06/25 History 25 mcg/actuation powdr for inhalation (Anoro Ellipta) Physical Exam Vital Signs: Vital Signs: Last Vital Signs Temp 98.1 F 08/08/25 06:16 Pulse 107 H 08/08/25 08:21 Resp 19 08/08/25 08:21 BP 103/65 08/08/25 08:21 Pulse Ox 95 08/08/25 08:21 O2 Del Method Nasal Cannula 08/08/25 08:21 O2 Flow Rate 4 08/08/25 08:21 FiO2 25 08/07/25 09:13 Oxygen Flow Rate 3 08/07/25 10:03 BMI result Body Mass Index 11.9 Const: General: cooperative, well developed, alert, awake and acute distress mild and respiratory Nutritional Appearance: average body habitus and well nourished Orientation/consciousness: patient oriented x3 Limitations: no limitations HEENT: Head: Yes normocephalic and Yes atraumatic Neck: Neck: Yes trachea midline, Yes supple and Yes no JVD Resp: Effort & Inspection: normal respiratory effort Auscultation: wheezes scattered wheezes and diminished lung sounds Cardio: Jugular venous distension: no JVD Rhythm: abnormal rhythm other (Frequent short bursts of atrial tachycardia) Heart sounds: S1 normal heart sound present, S2 normal heart sound present, no click, no gallops and no murmurs GI: Auscultation: normal bowel sounds Skin: General skin exam: no rashes or lesions noted Neuro: General: patient oriented x3 and no focal motor deficits Extrem: General: Yes no clubbing, cyanosis or edema Psych: Appearance: grossly normal Objective Labs and Meds 08/07/25 09:26 08/08/25 03:55 Lab results: Laboratory Results - last 24 hr 08/07/25 08/07/25 08/07/25 09:16 09:23 09:26 WBC 13.6 H RBC 5.11 Hgb 15.2 Hct 49.1 MCV 96.1 MCH 29.7 MCHC 31.0 RDW 14.7 Plt Count 269 MPV 10.0 Immature Gran % (Auto) 0.4 Neut % (Auto) 86.3 H Lymph % (Auto) 5.4 L [place] % (Auto) 7.5 Eos % (Auto) 0.1 Baso % (Auto) 0.3 Lymph # (Auto) 0.7 L [place] # (Auto) 1.0 Eos # (Auto) 0.0 Baso # (Auto) 0.0 Abs Immat Gran (auto) 0.06 H Absolute Neuts (auto) 11.7 H Absolute Nucleated RBC 0.000 Nucleated RBC % (auto) 0.0 PT INR VBG pH 7.23 L VBG pCO2 64 VBG pO2 53 VBG HCO3 27 H VBG O2 Saturation 69.0 VBG Base Excess -2.1 Sodium 142 Potassium 4.1 Chloride 106 Carbon Dioxide 24 Anion Gap 16 BUN 24 H Creatinine 1.18 Estim Creat Clear Calc 25.8 Estimated GFR 59 POC Glucose Random Glucose 208 H Lactic Acid 2.9 H* Lactic Acid F/U @ 2Hr Lactic Acid F/U @ 4Hr Calcium 9.4 Magnesium 2.2 Total Bilirubin 0.5 Direct Bilirubin 0.2 AST 28 ALT 15 Alkaline Phosphatase 77 Troponin I High Sens 81.9 H NT-Pro-B Natriuret Pep 2935.9 H Total Protein 7.4 Albumin 4.2 Procalcitonin 0.07 Urine Color Urine Appearance Urine pH Ur Specific [place] Urine Protein Urine Glucose (UA) Urine Ketones Urine Blood Urine Nitrite Ur Leukocyte Esterase Urine RBC Urine WBC Ur Squamous Epith Cells Urine Bacteria Hyaline Casts Nasal Screen MRSA (PCR) Nasal S. aureus Screen Nasal MRSA/S.aureus Interp COVID-19 (ALFONSO) Negative COVID-19 Clin Com See Note Influenza Type A (SUZE) Negative Influenza Type B (SUZE) Negative Influenza A & B Note See Note 08/07/25 08/07/25 08/07/25 11:18 11:24 13:34 WBC RBC Hgb Hct MCV MCH MCHC RDW Plt Count MPV Immature Gran % (Auto) Neut % (Auto) Lymph % (Auto) B[place] % (Auto) Eos % (Auto) Baso % (Auto) Lymph # (Auto) B[place] # (Auto) Eos # (Auto) Baso # (Auto) Abs Immat Gran (auto) Absolute Neuts (auto) Absolute Nucleated RBC Nucleated RBC % (auto) PT INR VBG pH 7.29 L VBG pCO2 59 VBG pO2 47 VBG HCO3 28 H VBG O2 Saturation 67.0 VBG Base Excess 0.8 Sodium Potassium Chloride Carbon Dioxide Anion Gap BUN Creatinine Estim Creat Clear Calc Estimated GFR POC Glucose Random Glucose Lactic Acid 3.4 H* Lactic Acid F/U @ 2Hr 3.3 H* Lactic Acid F/U @ 4Hr Calcium Magnesium Total Bilirubin Direct Bilirubin AST ALT Alkaline Phosphatase Troponin I High Sens 356.3 H* D NT-Pro-B Natriuret Pep Total Protein Albumin Procalcitonin Urine Color Urine Appearance Urine pH Ur Specific [place] Urine Protein Urine Glucose (UA) Urine Ketones Urine Blood Urine Nitrite Ur Leukocyte Esterase Urine RBC Urine WBC Ur Squamous Epith Cells Urine Bacteria Hyaline Casts Nasal Screen MRSA (PCR) Nasal S. aureus Screen Nasal MRSA/S.aureus Interp COVID-19 ([facility]) COVID-19 Clin Com Influenza Type A (SUZE) Influenza Type B (SUZE) Influenza A & B Note 08/07/25 08/07/25 08/07/25 15:25 16:40 17:39 WBC RBC Hgb Hct MCV MCH MCHC RDW Plt Count MPV Immature Gran % (Auto) Neut % (Auto) Lymph % (Auto) [place] % (Auto) Eos % (Auto) Baso % (Auto) Lymph # (Auto) [place] # (Auto) Eos # (Auto) Baso # (Auto) Abs Immat Gran (auto) Absolute Neuts (auto) Absolute Nucleated RBC Nucleated RBC % (auto) PT INR VBG pH VBG pCO2 VBG pO2 VBG HCO3 VBG O2 Saturation VBG Base Excess Sodium Potassium Chloride Carbon Dioxide Anion Gap BUN Creatinine Estim Creat Clear Calc Estimated GFR POC Glucose Random Glucose Lactic Acid 2.0 Lactic Acid F/U @ 2Hr Lactic Acid F/U @ 4Hr 3.4 H* Calcium Magnesium Total Bilirubin Direct Bilirubin AST ALT Alkaline Phosphatase Troponin I High Sens 3400.8 H* D NT-Pro-B Natriuret Pep Total Protein Albumin Procalcitonin Urine Color Yellow Urine Appearance Clear Urine pH 5.5 Ur Specific [place] >= 1.030 H Urine Protein 30 (1+) H Urine Glucose (UA) Negative Urine Ketones Trace Urine Blood Negative Urine Nitrite Negative Ur Leukocyte Esterase Negative Urine RBC 0-2 Urine WBC 0-5 Ur Squamous Epith Cells 3-5 Urine Bacteria None Seen Hyaline Casts 11-20 Nasal Screen MRSA (PCR) NEGATIVE Nasal S. aureus Screen NEGATIVE Nasal MRSA/S.aureus Interp SEE NOTE COVID-19 ([facility]) COVID-19 Clin Com Influenza Type A (SUZE) Influenza Type B (SUZE) Influenza A & B Note 08/07/25 08/07/25 08/07/25 17:46 18:34 21:22 WBC RBC Hgb Hct MCV MCH MCHC RDW Plt Count MPV Immature Gran % (Auto) Neut % (Auto) Lymph % (Auto) B[place] % (Auto) Eos % (Auto) Baso % (Auto) Lymph # (Auto) [place] # (Auto) Eos # (Auto) Baso # (Auto) Abs Immat Gran (auto) Absolute Neuts (auto) Absolute Nucleated RBC Nucleated RBC % (auto) PT 12.9 H INR 1.1 VBG pH 7.36 VBG pCO2 42 VBG pO2 73 VBG HCO3 24 VBG O2 Saturation 89.0 VBG Base Excess -0.7 Sodium Potassium Chloride Carbon Dioxide Anion Gap BUN Creatinine Estim Creat Clear Calc Estimated GFR POC Glucose Random Glucose Lactic Acid 1.9 Lactic Acid F/U @ 2Hr Lactic Acid F/U @ 4Hr Calcium Magnesium Total Bilirubin Direct Bilirubin AST ALT Alkaline Phosphatase Troponin I High Sens 6154.5 H* D NT-Pro-B Natriuret Pep Total Protein Albumin Procalcitonin Urine Color Urine Appearance Urine pH Ur Specific [place] Urine Protein Urine Glucose (UA) Urine Ketones Urine Blood Urine Nitrite Ur Leukocyte Esterase Urine RBC Urine WBC Ur Squamous Epith Cells Urine Bacteria Hyaline Casts Nasal Screen MRSA (PCR) Nasal S. aureus Screen Nasal MRSA/S.aureus Interp COVID-19 ([facility]) COVID-19 Clin Com Influenza Type A (SUZE) Influenza Type B (SUZE) Influenza A & B Note 08/07/25 08/08/25 08/08/25 22:25 01:33 03:55 WBC RBC Hgb Hct MCV MCH MCHC RDW Plt Count MPV Immature Gran % (Auto) Neut % (Auto) Lymph % (Auto) [place] % (Auto) Eos % (Auto) Baso % (Auto) Lymph # (Auto) [place] # (Auto) Eos # (Auto) Baso # (Auto) Abs Immat Gran (auto) Absolute Neuts (auto) Absolute Nucleated RBC Nucleated RBC % (auto) PT INR VBG pH VBG pCO2 VBG pO2 VBG HCO3 VBG O2 Saturation VBG Base Excess Sodium Potassium Chloride Carbon Dioxide Anion Gap BUN Creatinine 0.97 Estim Creat Clear Calc 31.4 Estimated GFR > 60 POC Glucose 167 H Random Glucose Lactic Acid Lactic Acid F/U @ 2Hr Lactic Acid F/U @ 4Hr Calcium Magnesium Total Bilirubin Direct Bilirubin AST ALT Alkaline Phosphatase Troponin I High Sens 7177.4 H* 6431.2 H* NT-Pro-B Natriuret Pep Total Protein Albumin Procalcitonin Urine Color Urine Appearance Urine pH Ur Specific [place] Urine Protein Urine Glucose (UA) Urine Ketones Urine Blood Urine Nitrite Ur Leukocyte Esterase Urine RBC Urine WBC Ur Squamous Epith Cells Urine Bacteria Hyaline Casts Nasal Screen MRSA (PCR) Nasal S. aureus Screen Nasal MRSA/S.aureus Interp COVID-19 ([facility]) COVID-19 Clin Com Influenza Type A (SUZE) Influenza Type B (SUZE) Influenza A & B Note Imaging Radiologist's impression: Impressions Chest X-Ray 08/07/25 08:50 IMPRESSION: Acute on chronic airspace disease and concerning for malignancy, right lung. Recommend dedicated IV contrast enhanced CT chest. Electronically signed by: Kenney Ramirez MD 08/07/2025 09:06 AM EDT RP Chest CTA 08/07/25 10:56 IMPRESSION: No acute pulmonary emboli. Concerning aspiration pneumonia, right lung. Mild to moderate interstitial lung edema and bilateral pleural effusions, moderate volume. Centrilobular emphysematous changes. Coronary artery disease and atherosclerosis disease. Bilateral renal cysts. Fleischner guidelines were followed. Electronically signed by: Kenney Ramirez MD 08/07/2025 11:23 AM EDT RP Assessment and Plan (1) Non-ST elevation CT (NSTEMI): Status: Acute Plan Patient with NSTEMI which could be secondary to hypoxemic respiratory failure also could represent takotsubo cardiomyopathy given his loss of R-waves in anteroseptal leads as well as inferior leads which could represent apical infarct. This could be related takotsubo cardiomyopathy from acute respiratory distress at could represent a little bit of congestive heart failure on top of it as noted on chest CT. Will give him gentle diuresis Lasix 20 mg IV push. Obtain echocardiogram BRAYDON. Have requested the echo team to pursue that. Further treatment based on the same. Continue management of his underlying COPD exacerbation aggressively. Switch him to Xopenex given his recurrent short bursts of atrial tachycardia. For now will treat his atrial tachycardia with Cardizem unless he has LV ejection fraction is reduced which may need alternative treatment. For now I will treated with IV heparin as well as aspirin high-intensity statin therapy for his NSTEMI although it appears to be second-degree. His high likelihood of underlying obstructive coronary artery disease given his age and risk factors. This was discussed with him. Management was discussed in details. He understands agrees. Will follow with you. Thank you for allowing me to partake in his care Procedures Date of Service Date of Service: 08/08/25
[2025-08-08 08:27] LABS: Glucose, Whole Blood 180 mg/dL (60-115)
[2025-08-08 08:33] LABS: NT Pro B Type Natriuretic Pept 7920.1 pg/mL (<300)
[2025-08-08] MEDS: Furosemide 20 MG/2 ML VIAL IVPUSH (09:07)
[2025-08-08 09:42] LABS: Troponin-I High Sensitivity 3166.0 ng/L (<3.5-35.0)
--- NOTE | 2025-08-08 09:43 | PC.NURSE ---
critical troponin level of 3,166 received at this time. admitting provider/primary RN notified/aware.
--- NOTE | 2025-08-08 09:51 | PC.NURSE ---
Current bag of D5NS still going, order was accidentally D/C by pharmacy when retiming the second bag. D5NS is going at this time from when night RN started it, next bag due at 1300. PATIENT REMAINS NPO PENDING SWALLOW EVAL AT THIS TIME NO PO MEDS GIVEN
--- NOTE | 2025-08-08 10:01 | PC.NURSE ---
echo at bedside
--- NOTE | 2025-08-08 10:21 | MHC.CM.PN ---
CM met with Patient at bedside, in the ED, and addressed IMM with him, providing Patient with the original and a copy will be placed on the chart. Patient lives in a house with his /HCP/Crystal and he required no services nor DME BRIM BUSTER. Home self care vs ? of new VNA is the tentative plan and CM has initiated and will follow for dc planning. PCP is Dr. Erasmo Johnson and will transport to home at dc.
--- NOTE | 2025-08-08 10:40 | PC.NURSE ---
SPEECH CLEARED PT FOR PO MEDS WHOLE WITH WATER. NOTE TO FOLLOW FROM SPEECH. MORNING MEDS GIVEN WITH NO ISSUES
--- NOTE | 2025-08-08 11:19 | MHC.SL.SWA ---
Speech Pathologist Impression: Mild oropharygneal dysphagia Risk of Aspiration Due to: Hx of COPD, on O2 at home Weakness Dysphasia Diet Status: [facility] REGULAR diet, thin liquids, apsiration precautions, meds as pt prefers Liquid Consistency and Strategies for Safe Swallow: Liquid Intake Recommendation: Thin Liquid Intake Strategies: Solid Food Consistency: Dietary Recommendations: Regular Additional Modifications to Solid Foods: Oral Medication Intake: Whole with Liquid Please contact the pharmacy regarding appropriate crushable or liquid drug formulations that are available whenever modified delivery is recommended. Compensatory Strategies and Precautions to be Taken for Safe Swallow: Periodic throat clear/re-swallow Supervision While Eating and Drinking for Safe Swallow: Foods to Avoid: Swallowing Recommended Treatments: Recommendation for Speech: Inpatient Speech Therapy Comment: Pt presents with congested cough secondary to pulmonary status. Pt has upper and lower dentures, lower are loose fitting as pt lost 20lbs this past year. Pt reports pt will be having dentures refitted. Oropharyngeal ROM and coordination unremarkable; however, congested/wet voicing occurred intermittently in absence of PO. Pt able to elicit volitional throat clear/re-swallow. Pt tolerated regular solids, purees and thin liquids without overt s/s of aspiration. JOURNAL CLERK provided education to pt and on compensatory strategies to reduce risk for aspiration and [facility] pt receive JOURNAL CLERK tx for dysphagia if indicated. Pt and verbalize understanding, in agreement with [facility] inpatient POC. Hospitalist and RN notified of findings. [facility] regular diet, thin liquids, aspiration precautions. Frequency/Duration: Daily M-F Date Range for Service Req: Timeline to reassess: [employer] Clinican/Clinical Fellow: No Supervisory Statement: I have reviewed and agree with the student/clinical fellow's documentation: N/A Speech Language Pathologist: Rayna Hopson M.S., [facility]JOURNAL CLERK
[2025-08-08 13:10] LABS: Glucose, Whole Blood 182 mg/dL (60-115)
[2025-08-08 13:39] LABS: Troponin-I High Sensitivity 2358.8 ng/L (<3.5-35.0)
[2025-08-08] MEDS: 0.9 % Sodium Chloride Flush 3 ML SYRINGE IVFLUSH ×3 (15:51→21:08)
[2025-08-08 16:32] LABS: Glucose, Whole Blood 175 mg/dL (60-115)
--- NOTE | 2025-08-08 19:11 | HO.PM.IMPN ---
Subjective Subjective Date of Service: 08/08/25 Interval History: Continues to feel SOB, wet-sounding cough Occasional palpiations Pt noted to be desatting to 70s with minimal movement in bed Denies chest pain or pressure No N/V/abd pain Heart rate continues to be elevated in 110-120s Review of Systems Review of Systems: Yes all other systems are reviewed and are negative Physical Exam Exam: Exam: General: AOx3, appears uncomfortable Resp: Diffuse wheezing CVS: Irregularly irregular rhythm, tachycardic GI: +BS, NT, no distention Skin: Warm, dry Neuro: Cranial nerves II-XII grossly intact bilaterally. Motor grossly intact bilaterally Extremities: No edema Psych: Appropriate affect Vital Signs: Vital Signs: Last Vital Signs Temp 99.6 F 08/08/25 16:12 Pulse 103 H 08/08/25 18:44 Resp 18 08/08/25 18:44 BP 119/71 08/08/25 16:12 Pulse Ox 94 08/08/25 16:12 O2 Del Method Nasal Cannula 08/08/25 16:12 O2 Flow Rate 5 08/08/25 16:12 FiO2 25 08/07/25 09:13 Oxygen Flow Rate 3 08/07/25 10:03 BMI result Body Mass Index 11.9 Objective Data Active Medications Acetaminophen (Acetaminophen 325 Mg Tablet) 650 mg PO Q6H PRN PRN Reason: Pain, Mild 1-3,fever,headache Al Hydroxide/Mg Hydroxide (Magnesium Hydrox/Alum Hydrox 30 Ml Oral.Susp) 30 ml PO Q4H PRN PRN Reason: Heartburn Albuterol Sulfate (Albuterol Sulfate 90 Mcg 8 Gm Inhaler) 1 puff INHALE QID PRN On Hold: 08/08/25 08:31 PRN Reason: Wheezing Aspirin (Aspirin 81 Mg Tab.Chew) 81 mg PO DAILY [facility] Atorvastatin Calcium (Atorvastatin Calcium 80 Mg Tablet) 80 mg PO DAILY [facility] Last Admin: 08/08/25 10:29 Dose: 80 mg Documented By: PAUL Benzonatate (Benzonatate 100 Mg Capsule) 100 mg PO TID PRN PRN Reason: Cough Calcium Carbonate (Calcium Carbonate 750 Mg Tab.Chew) 750 mg PO Q4H PRN PRN Reason: Heartburn Docusate Sodium (Docusate Sodium 100 Mg Capsule) 100 mg PO BID [facility] Last Admin: 08/08/25 10:31 Dose: Not Given Documented By: PAUL Non-Admin Reason: Patient Refused Furosemide (Furosemide 20 Mg/2 Ml Vial) 20 mg IVPUSH DAILY [facility]; Protocol Last Admin: 08/08/25 09:07 Dose: 20 mg Documented By: PAUL Azithromycin 500 mg/ Sodium (Chloride) 250 mls @ 125 mls/hr IV Q24H MARIAN Stop: 08/12/25 08:59 Last Infusion: 08/08/25 12:07 Dose: Infused Documented By: YUNIEL Dextrose/Sodium Chloride (D5ns) 1,000 mls @ 100 mls/hr IVCONT .Q10H [facility] Last Admin: 08/08/25 13:58 Dose: Not Given Documented By: YUNIEL Non-Admin Reason: Medication Discontinued Piperacillin Sod/Tazobactam (Sod 2.25 gm/ Sodium Chloride) 50 mls @ 100 mls/hr IV Q6H [facility] Last Infusion: 08/08/25 14:27 Dose: Infused Documented By: YUNIEL Levalbuterol HCl (Levalbuterol Hcl 1.25 Mg/3 Ml Vial.Neb) 1.25 mg INHALE RQ4H WHILE AWAKE [facility] Last Admin: 08/08/25 18:44 Dose: 1.25 mg Documented By: CHRISSY Magnesium Hydroxide (Milk Of Magnesia 30 Ml Oral.Susp) 30 ml PO DAILY PRN PRN Reason: Constipation Melatonin (Melatonin 3 Mg Tablet) 6 mg PO BEDTIME PRN PRN Reason: Insomnia Methylprednisolone Sodium Succinate (Methylprednisolone Sod Succ 125 Mg/2 Ml Vial) 60 mg IVPUSH Q8H [facility] Last Admin: 08/08/25 17:59 Dose: 60 mg Documented By: KAYLA Comments: Metoprolol Tartrate (Metoprolol Tartrate 25 Mg Tablet) 25 mg PO QID [facility]; Protocol Last Admin: 08/08/25 17:59 Dose: 25 mg Documented By: KAYLA Ondansetron HCl (Ondansetron Hcl 4 Mg/2 Ml Vial) 4 mg IVPUSH Q8H PRN PRN Reason: Nausea and Vomiting Polyethylene Glycol (Polyethylene Glycol 3350 17 Gm Powd.Pack) 17 gm PO DAILY PRN PRN Reason: Constipation Senna (Sennosides 8.6 Mg Tablet) 17.2 mg PO BEDTIME [facility] Last Admin: 08/07/25 22:30 Dose: Not Given Documented By: NEFTALY Non-Admin Reason: NPO Sodium Chloride (0.9 % Sodium Chloride Flush 3 Ml Syringe) 3 ml IVFLUSH QSHIFT [facility] Last Admin: 08/08/25 15:51 Dose: 3 ml Documented By: KAYLA Labs 08/07/25 09:26 08/08/25 03:55 Labs: Laboratory Results - last 24 hr 08/07/25 08/07/25 08/08/25 21:22 22:25 01:33 Estim Creat Clear Calc Estimated GFR POC Glucose 167 H Lactic Acid 1.9 Troponin I High Sens 6154.5 H* D 7177.4 H* NT-Pro-B Natriuret Pep 08/08/25 08/08/25 08/08/25 03:55 08:19 08:55 Estim Creat Clear Calc 31.4 Estimated GFR > 60 POC Glucose 180 H Lactic Acid Troponin I High Sens 6431.2 H* 3166.0 H* D NT-Pro-B Natriuret Pep 7920.1 H 08/08/25 08/08/25 13:06 16:22 Estim Creat Clear Calc Estimated GFR POC Glucose 182 H 175 H Lactic Acid Troponin I High Sens 2358.8 H* NT-Pro-B Natriuret Pep Microbiology Microbiology Results: Microbiology 08/07/25 09:26 Blood Culture - Preliminary Blood - Venous No growth after 24 hours. 08/07/25 09:16 Blood Culture - Preliminary Blood - Venous No growth after 24 hours. Assessment and Plan (1) Non-ST elevation [place] (NSTEMI): Status: Acute (2) COPD exacerbation: Status: Acute (3) Acute respiratory failure with hypoxia and hypercarbia: Status: Acute Plan Patient is a 84 yo male with history of COPD not on home O2, HLD , recurrent aspiration pneumonia, difficulty swallowing to both solids and liquids for the past few weeks who reports acute on chronic worsening of respiratory failure necessitating BiPAP, IV steroids. Patient met severe sepsis criteria secondary to bilateral pneumonia #Acute hypoxic respiratory failure in the setting of COPD exacerbation and underlying pneumonia Concerns for aspiration Xopenex, Solu-Medrol Zosyn day 1 Given that the patient is likely aspirating/high-risk of aspiration BiPAP is contraindicated in this patient Likely need home O2 eval prior to discharge #A/C stated Aspiration pneumonia Patient does not have an official diagnosis of dysphagia who is the primary caregiver, it is likely that the patient has underlying dysphagia hence placed him on NPO until swallow eval completed Cleared by speech, no overt aspiration: regular solids with thin liquids NSTEMI Trops peaked at 7177.4, now downtrending to 2358.8 On heparin drip Echo showing wall motion abnormality; has hx of TN 45 years ago Aspirin, high-intensity statin Cardiology following, think likely secondary NSTEMI or stress induced cardiomyopathy #AE HFpEF Echo showing LVEF 35-40% with wall motion abnormality RCA/circumflex distribution Lasix 20 IV daily Metoprolol 24mg q6h #Frailty in elderly PT/OT Will likely benefit from a short-term rehab DVT prophylaxis: on heparin drip Code status full confirmed with the patient and the at the bedside Pt requires continue hospitalization for treatment of multiple issues, including NSTEMI on heparin drip, sepsis secondary to severe pneumonia due to evidence of systemic infection, hemodynamic instability, and the need for close monitoring and aggressive management. The patient requires intravenous antibiotics, IV steroids, and frequent assessment of vital signs and organ function. Inpatient care is essential to promptly address potential complications such as respiratory failure, septic shock, and multi-organ dysfunction, and to provide advanced supportive therapies as needed. Quality Stroke Does the patient have a stroke diagnosis?: No VTE Prior VTE?: No VTE Risk Level:: Medical - moderate - high VTE Device Contraindication: N/A - Device Ordered VTE Drug Contraindication: N/A - Med Ordered
[2025-08-08 20:55] LABS: Glucose, Whole Blood 157 mg/dL (60-115)
[2025-08-09] VITALS (15 sets, daily range): BP systolic 105–160; BP diastolic 60–89; PULSE 79–129; RESP 16–28; TEMP 36.4–36.8; O2SAT 90–97; BMI 25.2
[2025-08-09 07:01] LABS: Hematocrit 36.1 % (42.0-52.0); Hemoglobin 11.5 g/dl (14.0-18.0); Imm Gran Abs Auto 0.06 X10*3/uL (0.00-0.03); Imm Gran Pct Auto 0.6 % (0.0-0.4); Lymphocytes Absolute Auto 0.4 X10*3/uL (1.2-4.9); MANUAL DIFF FLAG SCAN; Mean Corpuscular HGB Conc 31.9 g/dl (31.0-36.0); Mean Corpuscular Hemoglobin 30.0 pg (27.0-33.0); Mean Corpuscular Volume 94.3 fL (80.0-98.0); NRBC Abs Auto 0.000 X10*3/uL (0.0-0.012); NRBC Pct Auto 0.0 /100WBC (0.0-0.2); Platelet Count 225 X10*3/uL (160-400); Red Blood Count 3.83 X10*6/uL (4.60-5.80); SCAN SMEAR FLAG 1; White Blood Count 9.8 X10*3/uL (4.8-10.8)
[2025-08-09 07:53] LABS: Alanine Aminotransferase 22 U/L (0-40); Albumin Level 3.6 g/dL (3.5-5.0); Alkaline Phosphatase 49 U/L (39-117); Anion Gap 12 (12-20); Aspartate Amino Transferase 56 U/L (5-37); Blood Urea Nitrogen 30 mg/dL (9-16); Calcium 8.6 mg/dL (8.4-10.2); Carbon Dioxide 27 mmol/L (22-29); Chloride 109 mmol/L (96-108); Creatinine Clr Calc Pharmacy 29.0; Estimated Glomerular Filt Rate > 60; Magnesium 2.3 mg/dL (1.6-2.6); Potassium 4.1 mmol/L (3.3-5.1); Sodium 144 mmol/L (135-145); Total Protein 6.0 g/dL (6.5-8.0)
[2025-08-09 07:53] LABS: Glucose, Whole Blood 147 mg/dL (60-115)
[2025-08-09 08:15] LABS: NT Pro B Type Natriuretic Pept 5441.4 pg/mL (<300)
[2025-08-09] MEDS: Furosemide 20 MG/2 ML VIAL IVPUSH ×2 (09:20)
[2025-08-09] MEDS: 0.9 % Sodium Chloride Flush 3 ML SYRINGE IVFLUSH ×2 (09:21→20:30)
[2025-08-09 10:10] LABS: VBG HCO3 27 mmol/L (22-26); VBG O2 % Saturation 96.0 %
[2025-08-09 10:10] LABS: Venous Blood Gas Refer to POC result
[2025-08-09 10:16] LABS: INTERNATIONAL NORM RATIO 1.0 (0.9-1.1); Prothrombin Time 11.6 SEC (10.9-12.4)
[2025-08-09 10:18] LABS: PTT Heparin Drip 25.7 SEC (53-77.9)
--- NOTE | 2025-08-09 10:19 | P.PNCA_ITS ---
Subjective Subjective Date of Service: 08/09/25 Principal diagnosis: Acute respiratory failure Interval history: Patient says he developed significant shortness of breath with minimal exertion with PT today and was very short of breath when I saw him. Patient was not having any chest pain. However complains of some diaphoresis. Patient was then put on high flow oxygen and some suctioning. With high flow oxygen patient is breathing better. Was given Lasix 40 mg IV push. Echocardiogram yesterday showed reduced LV ejection fraction with wall motion abnormality. Noted to have frequent atrial arrhythmias with atrial tach Review of Systems Constitutional: Denies chills and Denies fever(s) Cardiovascular: Denies chest pain, Denies rapid heart rate, Denies leg edema, Denies palpitations and Reports dyspnea (Severe) Respiratory: Reports dyspnea (Severe) Endocrine: Denies palpitations Physical Exam Vital Signs: Last Vital Signs Temp 98.1 F 08/09/25 07:38 Pulse 119 H 08/09/25 07:40 Resp 28 H 08/09/25 10:12 BP 160/89 H 08/09/25 07:38 Pulse Ox 93 08/09/25 07:38 O2 Del Method Nasal Cannula 08/09/25 07:38 O2 Flow Rate 4 08/09/25 07:38 FiO2 25 08/07/25 09:13 Oxygen Flow Rate 3 08/07/25 10:03 BMI result Body Mass Index 11.9 Const General: cooperative, alert, awake and in distress severe and respiratory Nutritional Appearance: average body habitus Orientation/consciousness: patient oriented x3 Neck Neck: Yes trachea midline, Yes supple and Yes no JVD Resp Effort & Inspection: respiratory distress Auscultation: crackles and diminished lung sounds Cardio Rate: tachycardic Heart sounds: S1 normal heart sound present, S2 normal heart sound present, no click, no gallops and no murmurs GI Auscultation: normal bowel sounds Neuro General: patient oriented x3 Extrem General: Yes no clubbing, cyanosis or edema Psych Appearance: grossly normal Objective Labs and Meds 08/09/25 06:01 08/09/25 06:01 Lab results: Laboratory Results - last 24 hr 08/08/25 08/08/25 08/08/25 13:06 16:22 20:49 WBC RBC Hgb Hct MCV MCH MCHC RDW Plt Count MPV Immature Gran % (Auto) Neut % (Auto) Lymph % (Auto) [place] % (Auto) Eos % (Auto) Baso % (Auto) Lymph # (Auto) [place] # (Auto) Eos # (Auto) Baso # (Auto) Abs Immat Gran (auto) Absolute Neuts (auto) Absolute Nucleated RBC Nucleated RBC % (auto) Smear Tech's Comments PT INR aPTT Heparin Protocol VBG pH VBG pCO2 VBG pO2 VBG HCO3 VBG O2 Saturation VBG Base Excess Sodium Potassium Chloride Carbon Dioxide Anion Gap BUN Creatinine Estim Creat Clear Calc Estimated GFR POC Glucose 182 H 175 H 157 H Random Glucose Calcium Magnesium Total Bilirubin AST ALT Alkaline Phosphatase Troponin I High Sens 2358.8 H* NT-Pro-B Natriuret Pep Total Protein Albumin 08/09/25 08/09/25 08/09/25 06:01 07:50 10:01 WBC 9.8 RBC 3.83 L D Hgb 11.5 L D Hct 36.1 L D MCV 94.3 MCH 30.0 MCHC 31.9 RDW 15.2 Plt Count 225 MPV 10.5 Immature Gran % (Auto) 0.6 H Neut % (Auto) 90.8 H Lymph % (Auto) 4.5 L [place] % (Auto) 4.0 Eos % (Auto) 0.0 Baso % (Auto) 0.1 Lymph # (Auto) 0.4 L [place] # (Auto) 0.4 Eos # (Auto) 0.0 Baso # (Auto) 0.0 Abs Immat Gran (auto) 0.06 H Absolute Neuts (auto) 8.9 H Absolute Nucleated RBC 0.000 Nucleated RBC % (auto) 0.0 Smear Tech's Comments VERIFIED PT 11.6 INR 1.0 aPTT Heparin Protocol 25.7 L VBG pH VBG pCO2 VBG pO2 VBG HCO3 VBG O2 Saturation VBG Base Excess Sodium 144 Potassium 4.1 Chloride 109 H Carbon Dioxide 27 Anion Gap 12 BUN 30 H Creatinine 1.05 Estim Creat Clear Calc 29.0 Estimated GFR > 60 POC Glucose 147 H Random Glucose 148 H Calcium 8.6 D Magnesium 2.3 Total Bilirubin 0.4 AST 56 H ALT 22 Alkaline Phosphatase 49 Troponin I High Sens NT-Pro-B Natriuret Pep 5441.4 H Total Protein 6.0 L Albumin 3.6 08/09/25 10:07 WBC RBC Hgb Hct MCV MCH MCHC RDW Plt Count MPV Immature Gran % (Auto) Neut % (Auto) Lymph % (Auto) [place] % (Auto) Eos % (Auto) Baso % (Auto) Lymph # (Auto) [place] # (Auto) Eos # (Auto) Baso # (Auto) Abs Immat Gran (auto) Absolute Neuts (auto) Absolute Nucleated RBC Nucleated RBC % (auto) Smear Tech's Comments PT INR aPTT Heparin Protocol VBG pH 7.34 VBG pCO2 50 VBG pO2 88 VBG HCO3 27 H VBG O2 Saturation 96.0 VBG Base Excess 1.0 Sodium Potassium Chloride Carbon Dioxide Anion Gap BUN Creatinine Estim Creat Clear Calc Estimated GFR POC Glucose Random Glucose Calcium Magnesium Total Bilirubin AST ALT Alkaline Phosphatase Troponin I High Sens NT-Pro-B Natriuret Pep Total Protein Albumin Progress Note: A&P Assessment and plan (1) Acute respiratory failure with hypoxia and hypercarbia: Status: Acute Assessment and Plan: Acute respiratory failure with hypoxemia. This appears to be multifactorial with underlying severe COPD and mucus plugging could contribute to it. Also acute congestive heart failure could be contributing to it. I would suggest to treat both aggressively. Lasix 40 mg IV push has been given. Strict intake and output chart needs to be pursued. Consider close follow-up in his high flow oxygen. If does not improve I would consider pulmonary consultation as well. Consider imaging if he does not improve as well. Check anti pro BNP. Can start low-dose nitrates 1/2 inch as a vasodilators therapy also as a anti ischemic therapy. Overall prognosis is guarded. Atrial tachycardia contributing to his poor cardiac function as well. Will try to suppressed with amiodarone to reduce cardiac work as well as to improve cardiac efficiency. (2) Non-ST elevation [place] (NSTEMI): Status: Acute Assessment and Plan: Patient with NSTEMI which was initially felt to be second-degree event to acute hypoxemia COPD. Could be a primary event with wall motion abnormality. Although at current point time he is in significant respiratory distress. I do not think he is currently a candidate for pursuing invasive treatment options. I would continue with IV heparin. Continue aspirin and statin therapy. Nitrates as above. Discussed with patient briefly about need for possible cardiac catheterization although at this point time as I said he is clinically not doing well and will need to pursue conservative medical management to get him out of acute respiratory failure. Continue aggressive supportive care run close follow-up. Will follow with you. Time Spent With Patient Time: Total time managing care of this patient today ____ minutes. Progress Note: Quality Stroke Does the patient have a stroke diagnosis?: No Procedures Date of Service Date of Service: 08/09/25
[2025-08-09] MEDS: Amiodarone/Dextrose 150 MG/100 ML PLAST..BAG 600 MG IV (10:28)
[2025-08-09] MEDS: Heparin Sodium,Porcine/1/2NS 25,000 UNIT/250 ML IV.SOLN 10 UNIT IVCONT (11:21)
--- NOTE | 2025-08-09 13:56 | MHC.CM.PN ---
CM met with Patient and his at bedside to discuss PT's recommendation for Acute Rehab. Patient is agreeable to referrals to all 3 area [facility] but [facility] is his first choice. CM will follow.
--- NOTE | 2025-08-09 14:19 | MHC.CM.PN ---
CM assisted Patient with the completion of a HCP; he named his /Crystal as his Agent.
--- NOTE | 2025-08-09 15:50 | MHC.SL.SWA ---
Speech Pathologist Impression: Risk of Aspiration Due to: Dysphasia Diet Status: Recommend DOWNGRADE diet to chopped advanced (NDD3), continue on Thin Liquids, pills whole with liquid. Recommend supervision at meals. Liquid Consistency and Strategies for Safe Swallow: Liquid Intake Recommendation: Thin Liquid Intake Strategies: Small Sips Solid Food Consistency: Dietary Recommendations: Chopped/Advanced (NDD3) Additional Modifications to Solid Foods: Supervision at meals/monitor patient for adequate 02 saturation, fatigue, aspiration precautions. Oral Medication Intake: Whole with Liquid Please contact the pharmacy regarding appropriate crushable or liquid drug formulations that are available whenever modified delivery is recommended. Compensatory Strategies and Precautions to be Taken for Safe Swallow: Sitting Upright (90 deg) Liquids from Cup Small Bites and Sips Alternate Liquids/Solids Supervision While Eating and Drinking for Safe Swallow: Intermittent Supervision Foods to Avoid: Swallowing Recommended Treatments: Compens. Strategy Educat. Recommendation for Speech: Inpatient Speech Therapy Comment: Patient seen at lunch to assess toleration of diet. Patient was on hi-flow at time of meal, was seated upright in bed. Patient was eating ice cream from tray, and declined attempting anything more from meal (slab of turkey, mashed potatoes, al dente carrots). Patient then stated I think the food is causing this meaning his respiratory ailment. CONCRETE SAW OPERATOR clarified patient was referring to solid foods, which he affirmed. CONCRETE SAW OPERATOR re-assessed swallow on liquids, patient presented with timely oral phase, timely swallow, laryngeal elevation WFL. Patient also observed eating ice cream, which he was doing independently, with normal phases of swallow, no clinical signs of aspiration. Given patient's concern and vulnerable respiratory status, recommend DOWNGRADE diet to chopped advanced, continue on Thin Liquids, pills whole with liquid. Given patient's concern, he would benefit from supervision at meals, particularly if on hi-flow with periodic checks to assure patient is maintaining O2 saturation. RN advised. Frequency/Duration: Daily M-F Date Range for Service Req: Timeline to reassess: Director Of Consumer Affairs Clinican/Clinical Fellow: No Supervisory Statement: I have reviewed and agree with the student/clinical fellow's documentation: N/A Speech Language Pathologist: Lindsay Daniel M.A., CCC-CONCRETE SAW OPERATOR
--- NOTE | 2025-08-09 17:56 | HO.PM.IMPN ---
Subjective Subjective Date of Service: 08/09/25 Interval History: Notified by nursing this morning with pt. In respiratory distress Pt noted to have increased work of breathing, was tripoding, speaking in 1-2 word sentences, and desatting into the mid 80s on 10 L OxyMask Pt was deep suctioned and placed on high-flow Also placed on amiodarone drip for elevated heart rate Pt seen and evaluated multiple times during today's shift Pt currently appears much better and stable; feels better and no significant increased work of breathing after suctioning and high-flow Review of Systems Review of Systems: Yes all other systems are reviewed and are negative Physical Exam Exam: Exam: General: AOx3, currently no respiratory distress. Appears elderly, frail Resp: Mild bilateral wheezing, on high-flow. Speaking in complete sentences CVS: S1, S2, tachycardic GI: +BS, NT, no distention Skin: Warm, dry Neuro: Cranial nerves II-XII grossly intact bilaterally. Motor grossly intact bilaterally Extremities: No edema Psych: Appropriate affect Vital Signs: Vital Signs: Last Vital Signs Temp 97.9 F 08/09/25 16:00 Pulse 79 08/09/25 16:00 Resp 20 08/09/25 16:00 BP 114/67 08/09/25 16:00 Pulse Ox 92 08/09/25 16:00 O2 Del Method High Flow Nasal C annula 08/09/25 16:00 O2 Flow Rate 50 08/09/25 16:00 FiO2 55 08/09/25 16:00 Oxygen Flow Rate 3 08/07/25 10:03 BMI result Body Mass Index 25.2 Objective Data Active Medications Acetaminophen (Acetaminophen 325 Mg Tablet) 650 mg PO Q6H PRN PRN Reason: Pain, Mild 1-3,fever,headache Al Hydroxide/Mg Hydroxide (Magnesium Hydrox/Alum Hydrox 30 Ml Oral.Susp) 30 ml PO Q4H PRN PRN Reason: Heartburn Albuterol Sulfate (Albuterol Sulfate 90 Mcg 8 Gm Inhaler) 1 puff INHALE QID PRN On Hold: 08/08/25 08:31 PRN Reason: Wheezing Aspirin (Aspirin 81 Mg Tab.Chew) 81 mg PO DAILY [facility] Last Admin: 08/09/25 09:20 Dose: 81 mg Documented By: RICHARD Atorvastatin Calcium (Atorvastatin Calcium 80 Mg Tablet) 80 mg PO DAILY [facility] Last Admin: 08/09/25 09:20 Dose: 80 mg Documented By: RICHARD Benzonatate (Benzonatate 100 Mg Capsule) 100 mg PO TID PRN PRN Reason: Cough Calcium Carbonate (Calcium Carbonate 750 Mg Tab.Chew) 750 mg PO Q4H PRN PRN Reason: Heartburn Docusate Sodium (Docusate Sodium 100 Mg Capsule) 100 mg PO BID [facility] Last Admin: 08/09/25 09:20 Dose: 100 mg Documented By: RICHARD Furosemide (Furosemide 20 Mg/2 Ml Vial) 40 mg IVPUSH DAILY [facility]; Protocol Heparin Sodium (Porcine) (Heparin Sodium,Porcine 5,000 Unit/Ml Vial) 3,400 unit 40 unit/kg (3400 unit) IVPUSH PROTOCOL BOLUS PRN; Protocol PRN Reason: 40 unit/kg - Heparin Protocol Heparin Sodium (Porcine) (Heparin Sodium,Porcine 5,000 Unit/Ml Vial) 6,700 unit 80 unit/kg (6700 unit) IVPUSH PROTOCOL BOLUS PRN; Protocol PRN Reason: 80 unit/kg - Heparin Protocol Piperacillin Sod/Tazobactam (Sod 2.25 gm/ Sodium Chloride) 50 mls @ 100 mls/hr IV Q6H [facility] Last Infusion: 08/09/25 15:02 Dose: Infused Documented By: RICHARD Amiodarone HCl 900 mg/ Sodium (Chloride) 518 mls @ 0 mls/hr IVCONT .Q0M [facility]; Protocol Last Infusion: 08/09/25 16:53 Dose: 0.5 mg/min, 17.27 mls/hr Documented By: RICHARD Heparin Sodium/Sodium Chloride (Heparin Sodium,Porcine/1/2ns) 25,000 unit in 250 mls @ 0 mls/hr IVCONT .Q0M [facility]; Protocol Last Admin: 08/09/25 11:21 Dose: 11.86 units/kg/hr, 10 mls/hr Documented By: RICHARD Co-signed By: CLOVER Levalbuterol HCl (Levalbuterol Hcl 1.25 Mg/3 Ml Vial.Neb) 1.25 mg INHALE RQ4H WHILE AWAKE [facility] Last Admin: 08/09/25 15:31 Dose: 1.25 mg Documented By: PRACHI Magnesium Hydroxide (Milk Of Magnesia 30 Ml Oral.Susp) 30 ml PO DAILY PRN PRN Reason: Constipation Melatonin (Melatonin 3 Mg Tablet) 6 mg PO BEDTIME PRN PRN Reason: Insomnia Methylprednisolone Sodium Succinate (Methylprednisolone Sod Succ 40 Mg/Ml Vial) 40 mg IVPUSH Q12H [facility] Last Admin: 08/09/25 06:25 Dose: 40 mg Documented By: SELENE Metoprolol Tartrate (Metoprolol Tartrate 25 Mg Tablet) 25 mg PO QID [facility]; Protocol Last Admin: 08/09/25 14:26 Dose: 25 mg Documented By: RICHARD Ondansetron HCl (Ondansetron Hcl 4 Mg/2 Ml Vial) 4 mg IVPUSH Q8H PRN PRN Reason: Nausea and Vomiting Last Admin: 08/09/25 10:53 Dose: 4 mg Documented By: RICHARD Polyethylene Glycol (Polyethylene Glycol 3350 17 Gm Powd.Pack) 17 gm PO DAILY PRN PRN Reason: Constipation Senna (Sennosides 8.6 Mg Tablet) 17.2 mg PO BEDTIME [facility] Last Admin: 08/08/25 21:12 Dose: Not Given Documented By: SELENE Non-Admin Reason: Patient Refused Sodium Chloride (0.9 % Sodium Chloride Flush 3 Ml Syringe) 3 ml IVFLUSH QSHIFT [facility] Last Admin: 08/09/25 16:53 Dose: Not Given Documented By: RICHARD Non-Admin Reason: IV Running Labs 08/09/25 06:01 08/09/25 06:01 Labs: Laboratory Results - last 24 hr 08/08/25 08/09/25 08/09/25 20:49 06:01 07:50 MCV 94.3 MCH 30.0 MCHC 31.9 RDW 15.2 Plt Count 225 MPV 10.5 Immature Gran % (Auto) 0.6 H Neut % (Auto) 90.8 H Lymph % (Auto) 4.5 L [place] % (Auto) 4.0 Eos % (Auto) 0.0 Baso % (Auto) 0.1 Lymph # (Auto) 0.4 L [place] # (Auto) 0.4 Eos # (Auto) 0.0 Baso # (Auto) 0.0 Abs Immat Gran (auto) 0.06 H Absolute Neuts (auto) 8.9 H Absolute Nucleated RBC 0.000 Nucleated RBC % (auto) 0.0 Smear Tech's Comments VERIFIED PT INR aPTT Heparin Protocol VBG pH VBG pCO2 VBG pO2 VBG HCO3 VBG O2 Saturation VBG Base Excess Anion Gap 12 Estim Creat Clear Calc 29.0 Estimated GFR > 60 POC Glucose 157 H 147 H Random Glucose 148 H Calcium 8.6 D Magnesium 2.3 Total Bilirubin 0.4 AST 56 H ALT 22 Alkaline Phosphatase 49 NT-Pro-B Natriuret Pep 5441.4 H Total Protein 6.0 L Albumin 3.6 08/09/25 08/09/25 10:01 10:07 MCV MCH MCHC RDW Plt Count MPV Immature Gran % (Auto) Neut % (Auto) Lymph % (Auto) [place] % (Auto) Eos % (Auto) Baso % (Auto) Lymph # (Auto) [place] # (Auto) Eos # (Auto) Baso # (Auto) Abs Immat Gran (auto) Absolute Neuts (auto) Absolute Nucleated RBC Nucleated RBC % (auto) Smear Tech's Comments PT 11.6 INR 1.0 aPTT Heparin Protocol 25.7 L VBG pH 7.34 VBG pCO2 50 VBG pO2 88 VBG HCO3 27 H VBG O2 Saturation 96.0 VBG Base Excess 1.0 Anion Gap Estim Creat Clear Calc Estimated GFR POC Glucose Random Glucose Calcium Magnesium Total Bilirubin AST ALT Alkaline Phosphatase NT-Pro-B Natriuret Pep Total Protein Albumin Microbiology Microbiology Results: Microbiology 08/07/25 09:26 Blood Culture - Preliminary Blood - Venous No growth after 48 hours. 08/07/25 09:16 Blood Culture - Preliminary Blood - Venous No growth after 48 hours. Assessment and Plan (1) COPD exacerbation: Status: Acute (2) Non-ST elevation [place] (NSTEMI): Status: Acute (3) Acute respiratory failure with hypoxia and hypercarbia: Status: Acute Plan Patient is a 84 yo male with history of COPD not on home O2, HLD , recurrent aspiration pneumonia, difficulty swallowing to both solids and liquids for the past few weeks who reports acute on chronic worsening of respiratory failure necessitating BiPAP, IV steroids. Patient met severe sepsis criteria secondary to bilateral pneumonia #Acute hypoxic respiratory failure in the setting of COPD exacerbation and underlying pneumonia Concerns for aspiration Today pt noted to be in respiratory distress with extreme SOB, tripoding, and increased work of breathing Continue high-flow, deep suctioning as needed Xopenex, Solu-Medrol Zosyn day 2 Given that the patient is likely aspirating/high-risk of aspiration BiPAP is contraindicated in this patient Likely need home O2 eval prior to discharge Question of aspiration pneumonia Patient does not have an official diagnosis of dysphagia who is the primary caregiver, it is likely that the patient has underlying dysphagia hence placed him on NPO until swallow eval completed Cleared by speech, no overt aspiration: regular solids with thin liquids NSTEMI Trops peaked at 7177.4, now downtrending to 2358.8 On heparin drip Echo showing wall motion abnormality; has hx of [place] 45 years ago; unclear if new or chronic Aspirin, high-intensity statin Cardiology following, think likely secondary NSTEMI or stress induced cardiomyopathy Will place on amiodarone drip due to atrial tachycardia #AE HFpEF Echo showing LVEF 35-40% with wall motion abnormality RCA/circumflex distribution Lasix 40 IV daily Metoprolol 25mg q6h #Frailty in elderly PT/OT Will likely benefit from a short-term rehab DVT prophylaxis: on heparin drip Code status full confirmed with the patient and the at the bedside Pt requires continue hospitalization for treatment of multiple issues, including NSTEMI on heparin drip, sepsis secondary to severe pneumonia due to evidence of systemic infection and requiring high-flow, hemodynamic instability, and the need for close monitoring and aggressive management. The patient requires intravenous antibiotics, IV steroids, and frequent assessment of vital signs and organ function. Quality Stroke Does the patient have a stroke diagnosis?: No VTE Prior VTE?: No VTE Risk Level:: Medical - moderate - high VTE Device Contraindication: N/A - Device Ordered VTE Drug Contraindication: N/A - Med Ordered
[2025-08-09 18:01] LABS: PTT Heparin Drip 42.8 SEC (53-77.9)
[2025-08-09 23:40] LABS: PTT Heparin Drip 64.9 SEC (53-77.9)
[2025-08-10] VITALS (7 sets, daily range): BP systolic 118–144; BP diastolic 74–92; PULSE 61–92; RESP 15–20; TEMP 36.2–36.6; O2SAT 88–92
[2025-08-10] MEDS: Furosemide 20 MG/2 ML VIAL 40 MG IVPUSH (05:23)
[2025-08-10 05:37] LABS: MANUAL DIFF FLAG NO
[2025-08-10 05:38] LABS: Hematocrit 43.8 % (42.0-52.0); Hemoglobin 13.6 g/dl (14.0-18.0); Imm Gran Abs Auto 0.08 X10*3/uL (0.00-0.03); Imm Gran Pct Auto 0.6 % (0.0-0.4); Lymphocytes Absolute Auto 0.7 X10*3/uL (1.2-4.9); Mean Corpuscular HGB Conc 31.1 g/dl (31.0-36.0); Mean Corpuscular Hemoglobin 29.6 pg (27.0-33.0); Mean Corpuscular Volume 95.2 fL (80.0-98.0); NRBC Abs Auto 0.000 X10*3/uL (0.0-0.012); NRBC Pct Auto 0.0 /100WBC (0.0-0.2); Platelet Count 293 X10*3/uL (160-400); Red Blood Count 4.60 X10*6/uL (4.60-5.80); White Blood Count 12.9 X10*3/uL (4.8-10.8)
[2025-08-10 05:47] LABS: INTERNATIONAL NORM RATIO 1.1 (0.9-1.1); Prothrombin Time 12.2 SEC (10.9-12.4)
[2025-08-10 05:50] LABS: PTT Heparin Drip 76.3 SEC (53-77.9)
[2025-08-10 06:04] LABS: Alanine Aminotransferase 45 U/L (0-40); Albumin Level 4.1 g/dL (3.5-5.0); Alkaline Phosphatase 56 U/L (39-117); Anion Gap 16 (12-20); Aspartate Amino Transferase 63 U/L (5-37); Blood Urea Nitrogen 46 mg/dL (9-16); Calcium 9.2 mg/dL (8.4-10.2); Carbon Dioxide 24 mmol/L (22-29); Chloride 108 mmol/L (96-108); Creatinine Clr Calc Pharmacy 36.8; Estimated Glomerular Filt Rate 41; Magnesium 2.7 mg/dL (1.6-2.6); Potassium 4.9 mmol/L (3.3-5.1); Sodium 143 mmol/L (135-145); Total Protein 6.8 g/dL (6.5-8.0)
[2025-08-10] MEDS: 0.9 % Sodium Chloride Flush 3 ML SYRINGE IVFLUSH (08:35)
[2025-08-10] MEDS: Heparin Sodium,Porcine/1/2NS 25,000 UNIT/250 ML IV.SOLN 11.68 UNIT IVCONT (08:42)
[2025-08-10 09:36] LABS: ABG HCO3 18 mmol/L (22-26); ABG O2 % Saturation 66.0 %
[2025-08-10 09:36] LABS: Glucose, Whole Blood 215 mg/dL (60-115)
--- NOTE | 2025-08-10 09:44 | P.PNIM_ITS ---
Subjective Subjective Date of Service: 08/10/25 Interval History: Pt noted this morning to be more lethargic and with difficulty eating breakfast After breakfast pt began noted on monitoring to significantly desat When nursing enter the room patient's high-flow was off, likely only for 1-2 minutes Pt was lethargic, altered, and minimally responsive Rapid response was called ABG with pH of 7.14, pCO2 51, and bicarb 18 CXR showing flash pulmonary edema with significantly worsening alveolar and interstitial pulmonary edema and small bilateral layering pleural effusions Pt minimally improved while back on high-flow; will smile at command but unable to talk Pt will be transferred to the ICU for management there Review of Systems Review of Systems: Yes Unobtainable due to mental status Physical Exam 2 Exam: Exam: General: Awake though minimally responsive, eyes closed, will smile but unable to speak Resp: Rhonchorous throughout. Significant increased work of breathing CVS: S1, S2, tachycardic Extremities: No edema Vital Signs: Vital Signs: Last Vital Signs Temp 97.1 F 08/10/25 08:00 Pulse 76 08/10/25 08:08 Resp 20 08/10/25 08:08 BP 144/92 H 08/10/25 08:00 Pulse Ox 91 L 08/10/25 08:00 O2 Del Method High Flow Nasal C annula 08/10/25 08:00 O2 Flow Rate 50 08/10/25 08:00 FiO2 71.0 08/10/25 08:00 Oxygen Flow Rate 3 08/07/25 10:03 BMI result Body Mass Index 25.2 Objective Data Active Medications Acetaminophen (Acetaminophen 325 Mg Tablet) 650 mg PO Q6H PRN PRN Reason: Pain, Mild 1-3,fever,headache Al Hydroxide/Mg Hydroxide (Magnesium Hydrox/Alum Hydrox 30 Ml Oral.Susp) 30 ml PO Q4H PRN PRN Reason: Heartburn Albuterol Sulfate (Albuterol Sulfate 90 Mcg 8 Gm Inhaler) 1 puff INHALE QID PRN On Hold: 08/08/25 08:31 PRN Reason: Wheezing Aspirin (Aspirin 81 Mg Tab.Chew) 81 mg PO DAILY [facility] Last Admin: 08/10/25 08:48 Dose: 81 mg Documented By: CHRISTOPHE Atorvastatin Calcium (Atorvastatin Calcium 80 Mg Tablet) 80 mg PO DAILY [facility] Last Admin: 08/10/25 08:49 Dose: 80 mg Documented By: CHRISTOPHE Benzonatate (Benzonatate 100 Mg Capsule) 100 mg PO TID PRN PRN Reason: Cough Calcium Carbonate (Calcium Carbonate 750 Mg Tab.Chew) 750 mg PO Q4H PRN PRN Reason: Heartburn Docusate Sodium (Docusate Sodium 100 Mg Capsule) 100 mg PO BID [facility] Last Admin: 08/10/25 08:51 Dose: Not Given Documented By: CHRISTOPHE Non-Admin Reason: Patient Refused Heparin Sodium (Porcine) (Heparin Sodium,Porcine 5,000 Unit/Ml Vial) 3,400 unit 40 unit/kg (3400 unit) IVPUSH PROTOCOL BOLUS PRN; Protocol PRN Reason: 40 unit/kg - Heparin Protocol Heparin Sodium (Porcine) (Heparin Sodium,Porcine 5,000 Unit/Ml Vial) 6,700 unit 80 unit/kg (6700 unit) IVPUSH PROTOCOL BOLUS PRN; Protocol PRN Reason: 80 unit/kg - Heparin Protocol Piperacillin Sod/Tazobactam (Sod 2.25 gm/ Sodium Chloride) 50 mls @ 100 mls/hr IV Q6H [facility] Last Admin: 08/10/25 08:42 Dose: 100 mls/hr Documented By: CHRISTOPHE Amiodarone HCl 900 mg/ Sodium (Chloride) 518 mls @ 0 mls/hr IVCONT .Q0M [facility]; Protocol Last Admin: 08/10/25 08:46 Dose: 0.5 mg/min, 17.27 mls/hr Documented By: CHRISTOPHE Heparin Sodium/Sodium Chloride (Heparin Sodium,Porcine/1/2ns) 25,000 unit in 250 mls @ 0 mls/hr IVCONT .Q0M [facility]; Protocol Last Admin: 08/10/25 08:42 Dose: 13.86 units/kg/hr, 11.68 mls/hr Documented By: CHRISTOPHE Co-signed By: CHELE Levalbuterol HCl (Levalbuterol Hcl 1.25 Mg/3 Ml Vial.Neb) 1.25 mg INHALE RQ4H WHILE AWAKE [facility] Last Admin: 08/10/25 08:05 Dose: 1.25 mg Documented By: PRACHI Magnesium Hydroxide (Milk Of Magnesia 30 Ml Oral.Susp) 30 ml PO DAILY PRN PRN Reason: Constipation Melatonin (Melatonin 3 Mg Tablet) 6 mg PO BEDTIME PRN PRN Reason: Insomnia Methylprednisolone Sodium Succinate (Methylprednisolone Sod Succ 40 Mg/Ml Vial) 40 mg IVPUSH Q12H [facility] Last Admin: 08/10/25 05:23 Dose: 40 mg Documented By: SELENE Metoprolol Tartrate (Metoprolol Tartrate 25 Mg Tablet) 25 mg PO QID [facility]; Protocol Last Admin: 08/10/25 08:50 Dose: 25 mg Documented By: CHRISTOPHE Ondansetron HCl (Ondansetron Hcl 4 Mg/2 Ml Vial) 4 mg IVPUSH Q8H PRN PRN Reason: Nausea and Vomiting Last Admin: 08/09/25 10:53 Dose: 4 mg Documented By: RICHARD Polyethylene Glycol (Polyethylene Glycol 3350 17 Gm Powd.Pack) 17 gm PO DAILY PRN PRN Reason: Constipation Senna (Sennosides 8.6 Mg Tablet) 17.2 mg PO BEDTIME [facility] Last Admin: 08/09/25 20:26 Dose: Not Given Documented By: SELENE Non-Admin Reason: Patient Refused Sodium Chloride (0.9 % Sodium Chloride Flush 3 Ml Syringe) 3 ml IVFLUSH QSHIFT [facility] Last Admin: 08/10/25 08:35 Dose: 3 ml Documented By: CHRISTOPHE Labs 08/10/25 05:30 08/10/25 05:30 Labs: Laboratory Results - last 24 hr 08/09/25 08/09/25 08/09/25 10:01 10:07 17:28 MCV MCH MCHC RDW Plt Count MPV Immature Gran % (Auto) Neut % (Auto) Lymph % (Auto) [place] % (Auto) Eos % (Auto) Baso % (Auto) Lymph # (Auto) [place] # (Auto) Eos # (Auto) Baso # (Auto) Abs Immat Gran (auto) Absolute Neuts (auto) Absolute Nucleated RBC Nucleated RBC % (auto) PT 11.6 INR 1.0 aPTT Heparin Protocol 25.7 L 42.8 L D O2 Saturation ABG pH at Pt Temp ABG pCO2 at Pt Temp ABG pO2 at Pt Temp ABG HCO3 ABG Base Excess (Actual) VBG pH 7.34 VBG pCO2 50 VBG pO2 88 VBG HCO3 27 H VBG O2 Saturation 96.0 VBG Base Excess 1.0 Anion Gap Estim Creat Clear Calc Estimated GFR POC Glucose Random Glucose Calcium Magnesium Total Bilirubin AST ALT Alkaline Phosphatase Total Protein Albumin 08/09/25 08/10/25 08/10/25 23:21 05:30 09:29 MCV 95.2 MCH 29.6 MCHC 31.1 RDW 15.6 Plt Count 293 D MPV 10.4 Immature Gran % (Auto) 0.6 H Neut % (Auto) 83.5 H Lymph % (Auto) 5.4 L [place] % (Auto) 10.4 Eos % (Auto) 0.0 Baso % (Auto) 0.1 Lymph # (Auto) 0.7 L [place] # (Auto) 1.3 H Eos # (Auto) 0.0 Baso # (Auto) 0.0 Abs Immat Gran (auto) 0.08 H Absolute Neuts (auto) 10.7 H Absolute Nucleated RBC 0.000 Nucleated RBC % (auto) 0.0 PT 12.2 INR 1.1 aPTT Heparin Protocol 64.9 D 76.3 O2 Saturation ABG pH at Pt Temp ABG pCO2 at Pt Temp ABG pO2 at Pt Temp ABG HCO3 ABG Base Excess (Actual) VBG pH VBG pCO2 VBG pO2 VBG HCO3 VBG O2 Saturation VBG Base Excess Anion Gap 16 Estim Creat Clear Calc 36.8 Estimated GFR 41 POC Glucose 215 H Random Glucose 150 H Calcium 9.2 D Magnesium 2.7 H Total Bilirubin 0.4 AST 63 H ALT 45 H Alkaline Phosphatase 56 Total Protein 6.8 Albumin 4.1 08/10/25 09:33 MCV MCH MCHC RDW Plt Count MPV Immature Gran % (Auto) Neut % (Auto) Lymph % (Auto) [place] % (Auto) Eos % (Auto) Baso % (Auto) Lymph # (Auto) [place] # (Auto) Eos # (Auto) Baso # (Auto) Abs Immat Gran (auto) Absolute Neuts (auto) Absolute Nucleated RBC Nucleated RBC % (auto) PT INR aPTT Heparin Protocol O2 Saturation 66.0 ABG pH at Pt Temp 7.14 L* ABG pCO2 at Pt Temp 51 H ABG pO2 at Pt Temp 52 L ABG HCO3 18 L ABG Base Excess (Actual) -11.1 VBG pH VBG pCO2 VBG pO2 VBG HCO3 VBG O2 Saturation VBG Base Excess Anion Gap Estim Creat Clear Calc Estimated GFR POC Glucose Random Glucose Calcium Magnesium Total Bilirubin AST ALT Alkaline Phosphatase Total Protein Albumin Microbiology Microbiology Results: Microbiology 08/07/25 09:26 Blood Culture - Preliminary Blood - Venous No growth after 48 hours. 08/07/25 09:16 Blood Culture - Preliminary Blood - Venous No growth after 48 hours. Assessment and Plan (1) Non-ST elevation [place] (NSTEMI): Status: Acute (2) COPD exacerbation: Status: Acute (3) Acute respiratory failure with hypoxia and hypercarbia: Status: Acute Plan Patient is a 84 yo male with history of COPD not on home O2, HLD , recurrent aspiration pneumonia, difficulty swallowing to both solids and liquids for the past few weeks who reports acute on chronic worsening of respiratory failure necessitating BiPAP, IV steroids. Patient met severe sepsis criteria secondary to bilateral pneumonia #Acute hypoxic respiratory failure in the setting of COPD exacerbation and underlying pneumonia With concerns for aspiration Today pt noted to be in significant respiratory distress, minimally responsive, rapid response called ABG showed significant mixed acidosis; CXR with flash pulmonary edema Pt transferred to the ICU Current treatment: Xopenex, Solu-Medrol; Zosyn day 3 Given that the patient is likely aspirating/high-risk of aspiration BiPAP is contraindicated in this patient Likely need home O2 eval prior to discharge Question of aspiration pneumonia Patient does not have an official diagnosis of dysphagia who is the primary caregiver, it is likely that the patient has underlying dysphagia hence placed him on NPO until swallow eval completed Cleared by speech, no overt aspiration: regular solids with thin liquids NSTEMI Trops peaked at 7177.4, now downtrending to 2358.8 On heparin drip Echo showing wall motion abnormality; has hx of [place] 45 years ago; unclear if new or chronic Aspirin, high-intensity statin Cardiology following, think likely secondary NSTEMI or stress induced cardiomyopathy Will place on amiodarone drip due to atrial tachycardia #AE HFpEF Echo showing LVEF 35-40% with wall motion abnormality RCA/circumflex distribution Lasix 40 IV daily Metoprolol 25mg q6h #Frailty in elderly PT/OT Will likely benefit from a short-term rehab DVT prophylaxis: on heparin drip Code status full confirmed with the patient and the at the bedside Pt requires continue hospitalization for acute respiratory distress in the setting of flash pulmonary edema in the setting of worsening CHF/NSTEMI. Pt is now transferred to the ICU for continued care there. Quality Stroke Does the patient have a stroke diagnosis?: No VTE Prior VTE?: No VTE Risk Level:: Medical - moderate - high VTE Device Contraindication: N/A - Device Ordered VTE Drug Contraindication: N/A - Med Ordered
--- NOTE | 2025-08-10 10:46 | W.PM.CCCN ---
History of Present Illness Data of Consult Service Date: 08/10/25 Primary Care Provider: Erasmo Johnson MD [facility] Reason for consult: Shortness of breast 84-year-old gentleman with past medical history of COPD, recurrent aspiration pneumonia, dysphagia admitted to the hospital with sudden onset shortness of breath secondary to an acute coronary syndrome leading to drop in the EF causing pulmonary edema and acute hypoxemic respiratory failure. During the course of his hospitalization his breathing status kept worsening despite being on high-flow and non-rebreather so he is being transferred to medical ICU. Review of Systems Review of Systems: Unable to obtain as patient is unresponsive [facility] Social History Social History Household Members: Spouse Housing: House Do you presently have visiting nurse or other home services: No Patient Tobacco Use Status: Never used Tobacco service: No Meds Allergies Allergy/AdvReac Type Severity Reaction Status Date / Time No Known Allergies Allergy Verified 08/07/25 08:42 Active Medications: Current Medications Acetaminophen (Acetaminophen 325 Mg Tablet) 650 mg PO Q4H PRN PRN Reason: Fever >/= 100, Pain, mild 1-3 Albuterol Sulfate (Albuterol Sulfate 90 Mcg 8 Gm Inhaler) 1 puff INHALE QID PRN PRN Reason: Wheezing Benzonatate (Benzonatate 100 Mg Capsule) 100 mg PO TID PRN PRN Reason: Cough Calcium Carbonate (Calcium Carbonate 750 Mg Tab.Chew) 750 mg PO Q4H PRN PRN Reason: Heartburn Docusate Sodium (Docusate Sodium 100 Mg Capsule) 100 mg PO BEDTIME MARIAN Morphine Sulfate (Morphine Sulfate/Ns) 100 mg in 100 mls @ 0 mls/hr IVCONT .Q0M MARIAN; Protocol Levalbuterol HCl (Levalbuterol Hcl 1.25 Mg/3 Ml Vial.Neb) 1.25 mg INHALE RQ4H WHILE AWAKE [facility] Last Admin: 08/10/25 08:05 Dose: 1.25 mg Magnesium Hydroxide (Milk Of Magnesia 30 Ml Oral.Susp) 30 ml PO DAILY PRN PRN Reason: Constipation Melatonin (Melatonin 3 Mg Tablet) 6 mg PO BEDTIME PRN PRN Reason: Insomnia Ondansetron HCl (Ondansetron Odt 4 Mg Tab.Rapdis) 4 mg TRANSLINGU Q8H PRN PRN Reason: Nausea and Vomiting Sodium Chloride (0.9 % Sodium Chloride Flush 3 Ml Syringe) 3 ml IVFLUSH QSHIFT MARIAN Last Admin: 08/10/25 08:35 Dose: 3 ml Home Medications ?Medication ?Instructions ?Recorded ?Confirmed ?Last Taken ?Type albuterol sulfate 90 mcg/actuation 1 puff inhalation QID PRN wheezing 08/07/25 08/07/25 Unknown History aerosol inhaler ascorbic acid (vitamin C) 500 mg 500 mg PO DAILY 08/07/25 08/07/25 08/06/25 History tablet (Vitamin C) azelastine 137 mcg (0.1 %) nasal 1 spray intranasal BID PRN 08/07/25 08/07/25 Unknown History spray congestion cholecalciferol (vitamin D3) 25 25 mcg PO DAILY 08/07/25 08/07/25 08/06/25 History mcg (1,000 unit) tablet (Vitamin D3) losartan 25 mg tablet 25 mg PO DAILY 08/07/25 08/07/25 08/06/25 History multivitamin 1 tab PO DAILY 08/07/25 08/07/25 08/06/25 History omega 8-tvk-afl-fish oil 60 mg-90 1 cap PO DAILY 08/07/25 08/07/25 08/06/25 History mg-500 mg capsule (Fish Oil) simvastatin 40 mg tablet 40 mg PO DAILY 08/07/25 08/07/25 08/06/25 History umeclidinium 62.5 mcg-vilanterol 1 ea inhalation DAILY 08/07/25 08/07/25 08/06/25 History 25 mcg/actuation powdr for inhalation (Anoro Ellipta) Physical Exam Vital Signs: Vital Signs: Last Vital Signs Temp 97.1 F 08/10/25 08:00 Pulse 76 08/10/25 08:08 Resp 20 08/10/25 08:08 BP 144/92 H 08/10/25 08:00 Pulse Ox 91 L 08/10/25 08:00 O2 Del Method High Flow Nasal C annula 08/10/25 08:00 O2 Flow Rate 50 08/10/25 08:00 FiO2 71.0 08/10/25 08:00 Oxygen Flow Rate 3 08/07/25 10:03 BMI result Body Mass Index 25.2 General: Very elderly male in severe acute distress, chronically ill appearing and tired appearing, unresponsive, severely dyspneic Nutritional Appearance: well nourished and normal weight Eyes: appearance normal, both eyes and all related structures; Alignment and Position: alignment normal and position normal Neck: No lymphadenopathy, no thyromegaly Resp: bilateral air entry equal, bilateral crackles heard Cardio: Regular rate, regular rhythm; Heart sounds: S1 normal heart sound present and S2 normal heart sound present GI: soft, nontender, no guarding, no hepatosplenomegaly : bladder normal to inspection, bladder normal to palpation, no renal angle tenderness Skin: no rashes or lesions noted and elasticity normal Neuro: Very poorly responsive, protecting his airways Results Labs 08/10/25 05:30 08/10/25 05:30 Labs: Short CBC 08/10/25 Range/Units 05:30 WBC 12.9 H (4.8-10.8) X10*3/uL Hgb 13.6 L (14.0-18.0) g/dl Hct 43.8 D (42.0-52.0) % Plt Count 293 D (160-400) X10*3/uL BMP 08/10/25 05:30 Sodium 143 Potassium 4.9 Chloride 108 Carbon Dioxide 24 BUN 46 H Creatinine 1.61 H Calcium 9.2 D Liver Function 08/10/25 Range/Units 05:30 Total Bilirubin 0.4 (0.0-1.0) mg/dL AST 63 H (5-37) U/L ALT 45 H (0-40) U/L Alkaline Phosphatase 56 (39-117) U/L Albumin 4.1 (3.5-5.0) g/dL Microbiology Microbiology Results: Microbiology 08/07/25 09:26 Blood - Venous Blood Culture - Preliminary No growth after 48 hours. 08/07/25 09:16 Blood - Venous Blood Culture - Preliminary No growth after 48 hours. Assessment and Plan (1) Acute respiratory failure with hypoxia and hypercarbia: Status: Acute (2) Non-ST elevation [place] (NSTEMI): Status: Acute Plan Patient has significant comorbidities secondary to advanced age, with underlying recurrent aspiration pneumonia even prior to the hospital admission now complicated with acute coronary syndrome, CHF and an acute kidney injury. His respiratory status is very poor, he is severely dyspneic and currently in the verge of needing advanced life support. Given his baseline status, COPD, recurrent aspiration he would be a very poor candidate to come off of the ventilator and even if he comes off he would be admitted to a long-term assisted care with very poor quality of life. Crystal understands the grave nature of the situation and asks us to make him comfortable instead and not go on any life support. Patient is made DNI DNR, transition to comfort care/hospice care if he survives today. We will stop the heparin drip for NSTEMI We will stop amiodarone drip for atrial fibrillation We will start him on morphine drip for comfort measures, we will switch him to nasal cannula oxygen and we will give him as needed Versed pushes Bedside echo and lung ultrasound showing diffuse B lines suggestive of pulmonary edema, small bilateral pleural effusions, decreased LV systolic function, dilated IVCs.
--- NOTE | 2025-08-10 10:57 | PC.NURSE ---
Patient transferred today to ICU after hypoxic event and rapid response called overhead. patient had O2 in 40s with HFNC out of nose. Patient was obtunded which was a change from just 20 minutes prior. HOP elevated, HFNC was maxed out 60L 100% and Nonrebreather was placed over the top at 15L. patient sats recovered slowly however his WOB and mental status did not improve. ICU consulted and decided to transfer after patient oxygen recovered. Transferred to ICU without complication. Respiratory and this RN at bedside for transport, and bedside report given in ICU
[2025-08-10] MEDS: Morphine Sulfate/NS 100 MG/100 ML PLAST..BAG IVCONT (11:39)
[2025-08-10 13:37] LABS: ABG Refer to POC result
--- NOTE | 2025-08-10 15:23 | PC.NURSE ---
Patient repositioned, spontaneous movement in BLE and right upper arm, minimal eye opening. Mouth care provided, partial bath with fresh linen applied. Morphine drip placed in lock box. Bed alarm on, Call ralph in reach. Family in and out to visit.
--- NOTE | 2025-08-10 15:45 | MHC.CM.PN ---
EMR REVIEWED, PT TRANSFERRED TO ICU AFTER RAPID RESPONSE, CM WILL CONT TO FOLLOW DC NEEDS.
--- NOTE | 2025-08-10 16:13 | PC.NURSE ---
came out and got nursing, reporting I think he's passed . Nurse went in to assess, no chest rise noted, no heart sounds auscultated, no pulse noted. Provider Magdalena notified via [employer] and came and pronounced time of of 16:10.
--- NOTE | 2025-08-10 16:24 | PC.NURSE ---
Wasted remaining morphine drip with second RN Lynn for 86mL including IV tubing and bag.
--- NOTE | 2025-08-10 16:37 | PM.EVENT ---
Event Note Date of Service: 08/10/25 Event Note: Pt was briefly transferred to the ICU after experiencing acute hypoxic respiratory failure with significant respiratory distress and flash pulmonary edema requiring intubation. Pt is also experiencing an acute coronary syndrome, CHF and COPD exacerbations, and recurrent aspiration. Discussion was made with family concerning patient's poor prognosis and he was made to CONTACT [employer] OPERATOR and brought back to the medical floor. Pt on 08/10/2025 at 16:00. pt had no detectable pulse, heartbeat, or respiratory effort; pupils were mildly dilated and nonreactive. Family was at bedside.. Time Spent With Patient Time: Total time managing care of this patient today ____ minutes.
--- NOTE | 2025-08-10 16:57 | P.DN_ITS ---
Discharge Sum: Prov Provider Primary care physician: Erasmo Johnson MD Consults: 08/07/25 12:07 Consult to Cardiology Routine Consulting Provider: [facility] Reason for consultation: Troponinemia 08/07/25 18:32 Consult to Cardiology Stat Consulting Provider: [facility] Reason for consultation: nstemi Discharge Sum: Diag Contributing Factors (1) Non-ST elevation [place] (NSTEMI): (2) COPD exacerbation: (3) Acute respiratory failure with hypoxia and hypercarbia: Discharge Sum: Summary Date and Time Date of admission: 08/07/25 12:03 Summary Details: From admission HPI: Date of Service: 08/07/25 Chief Complaint: AHRF2/2 asp pneumonia, s/p rescue Bipap enroute Patient is a 84 yo male with history of COPD not on home O2, HLD , recurrent aspiration pneumonia, difficulty swallowing to both solids and liquids for the past few weeks who reports acute on chronic worsening of respiratory failure and was noted to have severe hypoxia down to the 70s necessitating a ride to the ED via ambulance. He was noted to have expiratory wheezes and hypoxia to the low 70s, Increased WOB w/ accessory muscle use. Poor air movement with expiratory wheezes posteriorly, unable to complete full sentences.-EMT had given him Solu- Medrol and placed him on BiPAP with improvement to the low 90s upon arrival to the ED. Patient reports that his was sick 2 weeks ago-was noted to have bronchitis, however she reports that she tried her best to isolate herself from the patient who has been sick. Imaging revealed bilateral pneumonia, with lactic acidemia worsening, fluids limited secondary to pulmonary edema, up trending troponinemia. When I saw the patient in the ED, he had increased work of breathing, appeared quite frail, tachypneic and tachycardic and met sepsis criteria-source being pneumonia. Patient was initiated on vanc and Ceftriaxone for sepsis workup, gentle fluid hydration given risks versus benefits for pulmonary edema\ Patient is being admitted for further medical management necessitating IV antibiotics, in a patient with high-risk of aspiration pneumonia. who is the healthcare proxy was at the bedside and he endorsed being full code. Hospital course: Pt was admitted to the hospital for acute hypoxic respiratory failure in the setting of COPD exacerbation and underlying likely aspiration pneumonia. Hospital course was complicated as pt had an NSTEMI with troponins peaking at 7177.4 as well as acute exacerbation of CHF. Pt was treated with bronchodilator therapy, IV steroids, Zosyn, Lasix IV, and placed on a heparin drip. Pt underwent echocardiogram showed LVEF 35-40% with wall motion abnormality and was also noted to have atrial tachycardia. Pt was then also started on an amiodarone drip as his heart rate was consistently in the 110s to 120s. Despite treatment pt began to deteriorate on the morning of 08/09 when he was noted to be in significant respiratory distress, tripoding and with increased work of breathing. Pt was placed on high-flow with relief of symptoms. ICU was contacted at that time, but pt did not require transfer. This morning pt was noted to be more lethargic and had some difficulty swallowing during breakfast, which was stopped. Later in the morning pt was noted on monitoring to significantly desat; when nursing arrived at the room patient's high-flow had become dislodged (likely for 1-2 minutes at most) and pt was minimally responsive. Rapid response was called and patient's ABG showed significant mixed acidosis with pH of 7.4, pCO2 51, and bicarb 18. CXR showed flash pulmonary edema significantly worsening alveolar interstitial pulmonary edema and small bilateral layering pleural effusions. Pt was then transferred to the ICU for management there. Given patient's significant comorbidities and poor prognosis, family elected to make the pt OPERATIONS OFFICER. Pt's medications were stopped and he was placed on a morphine drip and brought back to the hospital floor for com fort measures only. Pt on 08/10/2025 at 16:10. He had no detectable pulse, heartbeat, or respiratory effort; pupils were mildly dilated nonreactive. Family was at bedside. Additional Data Attending physician: DIEGO Becker
--- NOTE | 2025-08-20 07:26 | P.CDIM_ITS ---
PROVIDER RESPONSE TEXT: To clarify, the appropriate diagnosis supported by the clinical indicators: Acute QUERY TEXT: PHYSICIAN'S DOCUMENTATION REQUEST Date of Query: 08/09/2025 07:55 AM EDT Patient Name: Mango Wilkerson Admit Date: 08/07/2025 Dear Rylee CORTEZ, A review of the medical record indicates additional documentation may be needed. Please review below and update the documentation accordingly. Clinical Indicators: H&P 08/07/25 - Lactic acidosis up trending. LA 3.4 Fluids Clarify which of the following accurately represents the acuity of the lactic acidosis: Possible options might include: Acute Chronic Other specified Other (explain) Clinically unable to determine (explain) Thank you, Saniya Queen, CCS, CDIS Use of terms such as suspected, likely, concern for, or probable (associated with a specific diagnosis that is being evaluated, monitored, or treated as if it exists) are acceptable and can be coded in the inpatient setting, when documented at the time of discharge. Please use your independent medical judgment in providing your response. THIS QUERY IS PART OF THE PERMANENT MEDICAL RECORD
--- NOTE | 2025-08-20 07:26 | P.CDIM_ITS ---
PROVIDER RESPONSE TEXT: To clarify, the appropriate diagnosis supported by the clinical indicators: Other (explain): Weight as indicated here appears incorrect. Pt's weight at time of expiration listed at 84.3kg with BMI of 25.2 QUERY TEXT: PHYSICIAN'S DOCUMENTATION REQUEST Date of Query: 08/09/2025 07:57 AM EDT Patient Name: Mango Wilkerson Admit Date: 08/07/2025 Dear Rylee CORTEZ, A review of the medical record indicates additional documentation may be needed. Please review below and update the documentation accordingly. Clinical Indicators: Height: 6ft Weight: 39.916kg BMI: 11.9 Frail If possible, please provide an associated diagnosis related to the abnormal BMI, such as: Underweight Weight loss Cachexia Anorexia Malnutrition mild, moderate, severe Other (explain) Clinically unable to determine (explain) Thank you, Saniya Queen, CCS, CDIS Use of terms such as suspected, likely, concern for, or probable (associated with a specific diagnosis that is being evaluated, monitored, or treated as if it exists) are acceptable and can be coded in the inpatient setting, when documented at the time of discharge. Please use your independent medical judgment in providing your response. THIS QUERY IS PART OF THE PERMANENT MEDICAL RECORD
== END 2025-08-10 18:40 | disposition expired | DRG 871 ==
LOC: HO.ED 09:04 → HO.EDOVER 12:26 → HO.IMC 08-08 14:18 → HO.ICU 08-10 09:45 → HO.S3 08-10 13:50
PROVIDERS: Hospitalist; Physician Assistant; Admitting Provider Student in an Organized Health Care Education/Training Program; Emergency Provider Emergency Medicine; PCP Internal Medicine; Visit Provider Student in an Organized Health Care Education/Training Program
DX: A41.9 Sepsis, unspecified organism (principal); I21.4 Non-ST elevation (NSTEMI) myocardial infarction; J69.0 Pneumonitis due to inhalation of food and vomit; J96.01 Acute respiratory failure with hypoxia; I50.33 Acute on chronic diastolic (congestive) heart failure; J96.02 Acute respiratory failure with hypercapnia; J44.1 Chronic obstructive pulmonary disease with (acute) exacerbation; E87.21 Acute metabolic acidosis; N17.9 Acute kidney failure, unspecified; R13.10 Dysphagia, unspecified; Z51.5 Encounter for palliative care; Z66 Do not resuscitate; I11.0 Hypertensive heart disease with heart failure; Z20.822 Contact with and (suspected) exposure to COVID-19; Z79.899 Other long term (current) drug therapy
CPT/HCPCS: 36415; 36600; 71045; 71275; 80048; 80053; 80076; 81001; 82565; 82803; 82947; 83605; 83735; 83880; 84145; 84484; 85025; 85610; 85730; 87040; 87502; 87635; 87640; 87641; 92526; 92610; 93005; 93306; 94640; 97162; 97166; 99285; J0282; J0283; J0456; J0696; J1644; J1650; J1720; J1938; J2270; J2405; J2543; J2765; J2919; J3010; J3374; J7120; Q9957; Q9967

== ENCOUNTER → 2025-08-07 08:37 | Outpatient (BNV) | payer MEDICARE, SELFPAY | PROVIDERS: Admitting Provider Student in an Organized Health Care Education/Training Program; Emergency Provider Emergency Medicine; PCP Internal Medicine; Visit Provider Internal Medicine Cardiovascular Disease | DX: R00.0 Tachycardia, unspecified (principal); I45.10 Unspecified right bundle-branch block | CPT/HCPCS: 93010 ==

== ENCOUNTER → 2025-08-07 08:37 | Outpatient (BNV) | payer MEDICARE, SELFPAY | PROVIDERS: Emergency Provider Emergency Medicine; PCP Internal Medicine; Visit Provider Radiology Diagnostic Radiology | DX: J90 Pleural effusion, not elsewhere classified (principal); J81.1 Chronic pulmonary edema; J43.2 Centrilobular emphysema; I25.10 Atherosclerotic heart disease of native coronary artery without angina pectoris; N28.1 Cyst of kidney, acquired; J84.89 Other specified interstitial pulmonary diseases | CPT/HCPCS: 71045; 71275 ==

== ENCOUNTER 2025-08-07 12:03 | Outpatient (BNV) | payer MEDICARE, SELFPAY | END 2025-08-10 09:32 | PROVIDERS: Admitting Provider Student in an Organized Health Care Education/Training Program; Emergency Provider Emergency Medicine; PCP Internal Medicine; Visit Provider Radiology Diagnostic Radiology | DX: J90 Pleural effusion, not elsewhere classified (principal) | CPT/HCPCS: 71045 ==

== ENCOUNTER 2025-08-07 12:03 | Outpatient (BNV) | payer MEDICARE, SELFPAY | END 2025-08-08 05:14 | PROVIDERS: Admitting Provider Student in an Organized Health Care Education/Training Program; Emergency Provider Emergency Medicine; PCP Internal Medicine; Visit Provider Internal Medicine Cardiovascular Disease | DX: I21.4 Non-ST elevation (NSTEMI) myocardial infarction (principal); I42.2 Other hypertrophic cardiomyopathy; I44.0 Atrioventricular block, first degree; I45.10 Unspecified right bundle-branch block | CPT/HCPCS: 93010; 93306 ==

== ENCOUNTER 2025-08-07 12:03 | Outpatient (BNV) | payer MEDICARE, SELFPAY | END 2025-08-09 11:30 | PROVIDERS: Admitting Provider Student in an Organized Health Care Education/Training Program; Emergency Provider Emergency Medicine; PCP Internal Medicine; Visit Provider Radiology Diagnostic Radiology | DX: R91.8 Other nonspecific abnormal finding of lung field (principal) | CPT/HCPCS: 71045 ==

== ENCOUNTER → 2025-08-07 12:03 | Outpatient (BNV) | payer MEDICARE, SELFPAY | PROVIDERS: Admitting Provider Student in an Organized Health Care Education/Training Program; Emergency Provider Emergency Medicine; PCP Internal Medicine; Visit Provider Student in an Organized Health Care Education/Training Program | DX: J96.01 Acute respiratory failure with hypoxia (principal); J96.02 Acute respiratory failure with hypercapnia; J18.9 Pneumonia, unspecified organism | CPT/HCPCS: 99223; 99233; 99358; 99499 ==

== ENCOUNTER → 2025-08-07 12:03 | Outpatient (BNV) | payer MEDICARE, SELFPAY | PROVIDERS: Admitting Provider Student in an Organized Health Care Education/Training Program; Emergency Provider Emergency Medicine; PCP Internal Medicine; Visit Provider Internal Medicine Cardiovascular Disease | DX: J96.01 Acute respiratory failure with hypoxia (principal); J96.02 Acute respiratory failure with hypercapnia; I21.4 Non-ST elevation (NSTEMI) myocardial infarction | CPT/HCPCS: 99233 ==

== ENCOUNTER → 2025-08-07 12:03 | Outpatient (BNV) | payer MEDICARE, SELFPAY | PROVIDERS: Admitting Provider Student in an Organized Health Care Education/Training Program; Emergency Provider Emergency Medicine; PCP Internal Medicine; Visit Provider Internal Medicine Critical Care Medicine | DX: J96.01 Acute respiratory failure with hypoxia (principal); J96.02 Acute respiratory failure with hypercapnia; I21.4 Non-ST elevation (NSTEMI) myocardial infarction | CPT/HCPCS: 99223 ==